=== PATIENT | female | born 1985 | race Caucasian/White ===

== ENCOUNTER 2019-06-08 17:21 | Inpatient (IN) | payer BC ==
[2019-06-08 17:41] LABS: ABS Basophils 0.1 10^3/ul (0-0.2); ABS Eosinophils 0.2 10^3/ul (0-0.6); ABS Lymphocytes 2.1 10^3/ul (1.0-4.8); ABS Monocytes 0.7 10^3/ul (0-0.8); ABS Neutrophils 8.4 10^3/ul (1.5-7.7); Eosinophil % 2.1 %; Hematocrit 36 % (35-47); Hemoglobin 12.2 g/dL (12.0-16.0); Lymphocyte % 18.3 %; Mean Corpuscular HGB Conc 34 g/dL (31-36); Mean Corpuscular Hemoglobin 27 pg (27-31); Mean Corpuscular Volume 81 fL (80-97); Mean Platelet Volume 8.7 fL (7.4-10.4); Platelet Count 276 10^3/uL (150-450); Red Blood Count 4.48 10^6 /uL (3.70-4.87); Red Cell Distribution Width 15 % (10-15); White Blood Count 11.5 10^3/uL (3.5-10.8)
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
[2019-06-08] MEDS ORDERED: hydrOXYzine HCL TAB* 25 MG PO ONE (17:50)
[2019-06-08 18:02] LABS: ALT 20 U/L (7-52); AST 22 U/L (13-39); Albumin 4.4 g/dL (3.2-5.2); Albumin/Globulin Ratio 1.8 (1-3); Alkaline Phosphatase 57 U/L (34-104); Anion Gap 8 mmol/L (2-11); Blood Urea Nitrogen 13 mg/dL (6-24); CO2 Carbon Dioxide 23 mmol/L (22-32); Calcium 8.8 mg/dL (8.6-10.3); Chloride 107 mmol/L (101-111); EGFR African American 133.3 (>60); EGFR Non-African American 110.2 (>60); Globulin 2.5 g/dL (2-4); Glucose 75 mg/dL (70-100); Sodium 138 mmol/L (135-145); Total Protein 6.9 g/dL (6.4-8.9)
[2019-06-08 18:06] LABS: HCG Pregnancy < 0.60 mIU/mL
[2019-06-08] MEDS ORDERED: LORazepam TAB(*) 1 MG PO ONE (18:28)
[2019-06-08 18:44] LABS: Acetaminophen < 15 mcg/mL; Alcohol 43 mg/dL (<10); Lithium < 0.10 mmol/L (0.6-1.2); Salicylate < 2.50 mg/dL (<30)
[2019-06-08 18:59] LABS: TSH (Thyroid Stimulating Horm) 1.47 mcIU/mL (0.34-5.60)
[2019-06-08 19:11] LABS: Urine Appearance Cloudy; Urine Bilirubin Negative (Negative); Urine Blood Negative (Negative); Urine Color Colorless; Urine Glucose Negative (Negative); Urine Ketones Negative (Negative); Urine Nitrite Negative (Negative); Urine Protein Negative (Negative); Urine Specific Gravity 1.003 (1.010-1.030); Urine Urobilinogen Negative (Negative)
[2019-06-08] MEDS ORDERED: Acetaminophen TAB* 325 MG PO ONE (19:17)
--- NOTE | 2019-06-08 19:27 | ED ---
Progress - Progress Note Progress Note: Patient signed out from Dr. Velez shift change 06/08/19 19:00. Awaiting psychiatric evaluation. Pending disposition. Re-Evaluation - Re-Evaluation First Eval Re-Evaluation Time: 23:10 Comment: psychiatric gas plant repairer reviewed case with Dr. Chua psychiatry. patient will be admitted Course/Dx - Diagnoses Provider Diagnoses: Bipolar disorder Discharge ED - Sign-Out/Discharge Documenting (check all that apply): Patient Departure, Receiving Sign-Out Receiving patient FROM: Bre Velez - Discharge Plan Condition: Stable Disposition: PSYCHIATRIC FACILITY-[facility] - Billing Disposition and Condition Condition: STABLE Disposition: Psychiatric Facility [facility] - Attestation Statements Document Initiated by Scribe: Yes Documenting Scribe: Kandy Farooq Provider For Whom Mashaibe is Documenting (Include Credential): Emily Lucio MD Scribe Attestation: Kandy Barry, scribed for Emily Lucio MD on 06/09/19 at 0104. Scribe Documentation Reviewed: Yes Provider Attestation: The documentation as recorded by the Kandy bardales accurately reflects the service I personally performed and the decisions made by , Emily Lucio MD Status of Scribe Document: Viewed
[2019-06-08 19:40] LABS: Urine Benzodiazepine Screen None Detected (None Detect); Urine Opiates Screen None Detected (None Detect)
[2019-06-09] MEDS ORDERED: diPHENhydraMINE PO* 25 MG ONE (00:57)
[2019-06-09] MEDS: diPHENhydraMINE PO* 25 MG PO PRN ×3 (01:00→18:44)
[2019-06-09] MEDS ORDERED: Al Hydrox/Mg Hydrox/Simet LIQ* 30 ML UDC PO PRN (01:05)
[2019-06-09] MEDS: Lithium Carbonate TAB* 300 MG PO SCH ×2 (05:45→21:39)
[2019-06-09] MEDS: Vitamin THERAPEUTIC TAB PO SCH (08:53)
[2019-06-09] MEDS: Nicotine PATCH 21 MG/24 HR* PATCH TRANSDERM SCH (08:54)
[2019-06-09] MEDS: Nicotine* 2MG (FRUIT FLAVOR) GUM PO PRN ×2 (15:39→18:44)
--- NOTE | 2019-06-09 20:40 | HP ---
HISTORY AND PHYSICAL: DATE OF ADMISSION: 06/09/19 IDENTIFYING DATA: Millie is a 34-year-old white female with a history of bipolar disorder and multiple prior psychiatric hospitalizations in different hospitals throughout the [place], was brought into the emergency room by police after being found wandering downtown from bar to bar and presenting to the police as disorganized and nonsensical. According to Millie, she was standing outside in front of a hotel smoking cigarette and wearing a small skirt only when police confronted her. Instead of taking her to the residential, they brought her to the emergency room where Millie presented irritable, uncooperative, and requiring support of the security officers because of inappropriate behaviors including removing clothes and standing in the doorway with her breasts exposed. However, she was later cooperative with the attorney recruiter and gave a very disjointed but extensive history of mental illness. She was at that time blunted, irritable, tangential, religiously preoccupied, and was focussed on wanting to leave the hospital. She was not willing to allow the attorney recruiter to obtain collateral from her relatives and friends as she was a poor historian, however, finally, our attorney recruiter was able to get in touch with her sister, who lives in [place]. Her sister gave an elaborate history of her mental illness and hospitalizations. Please review the documents provided by Millie's mother, who is a nurse, to know more about the chronology of her illness. On today's evaluation, Millie reports that she has been experiencing difficulty falling asleep for days at a time. During that time, her mind was raising mostly focussed on her art works and she could not form any coherent thoughts at that time, being up for nights in a row. She may have also experienced some visual hallucinations, which scared her at that time. However, finally she got to sleep for 4 hours 1 night and then 5 hours next night, which settled her down a little bit. However, she continues to be very disorganized in our thoughts jumping from topics to topic, and appearing restless. At this time, she denies any suicidal or homicidal ideation. Also, denies any psychotic symptoms. 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 Again, Millie's history is not reliable at this time. There is a collateral history from her sister that Millie has been involved in doing drugs, especially cocaine and drinking a lot, however, her urine drug screen and tox screen in the emergency department were unremarkable. PAST PSYCHIATRIC HISTORY: As mentioned in the HPI, Millie had multiple psychiatric hospitalizations since age 21 in different hospitals throughout the [facility]. She was diagnosed with bipolar disorder and was successfully treated with lithium. However, during her last hospitalization in [facility], she was given an injection of Invega Sustenna, which according to Millie made her feel very restless and she was thought her heart was bursting out of her chest. Her lithium level during the ED presentation was extremely low. PAST MEDICAL HISTORY: No reportable medical health issues and she is not in any physical distress at this time. ALLERGIES: No known drug allergies, however, there is a history of her experiencing a psychotic-induced acute dystonia in May of this year, when she received Invega Sustenna injection. SUBSTANCE ABUSE HISTORY: Not clear, however, according to Millie's sister, she may have used cocaine and have been drinking. Millie reported that last night, prior to her coming to the hospital, she was going in and out of the bars drinking. FAMILY PSYCHIATRIC HISTORY: Unknown at this time because Millie cannot provide any history. 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 She was not involved in any significant relationship at this time. Her living situation is unstable at best. Prior to coming to the hospital, she was staying in a hotel. Again, more history needs to be obtained from Millie when she is more coherent and capable of providing meaningful information. PHYSICAL EXAMINATION GENERAL: Millie is a tall, healthy-appearing female, who is not in any physical distress at the time of evaluation. VITAL SIGNS: Her vitals show a blood pressure of 158/95, pulse 118, respirations 20, temperature 98.4, pulse oxygen 98 on room air. HEENT: PERRLA. EOMI x2. Head: Atraumatic, normocephalic. Ear canals clean with intact eardrums bilaterally. NECK: Supple with midline trachea. No lymphadenopathy or thyromegaly. CHEST: Equal air entry bilaterally. No wheezing or crepitations. CARDIOVASCULAR: S1 and S2 only. No murmurs or gallops. ABDOMEN: Flat, soft, nontender. No organomegaly. Bowel sounds positive in all quadrants. EXTREMITIES: Full range of movements of joints. Pulse positive in all 4 quadrants. NEUROLOGIC: No sensory deficits. Cranial nerves II through XII are grossly intact. She is alert and oriented to time, place, and person. MENTAL STATUS EXAMINATION: This is a well-dressed, neatly groomed, female, who is alert and oriented to time, place, and person. She is somewhat restless, but makes good eye contact. Her speech is moderately pressured, but overall goal directed. Describes her mood as "fine," observed affect, appears to be bright. Thought processes at this appears to be logical and goal directed. Thought content is devoid of any kind of delusions or obsessions. Intelligence appears to be average as evidenced by vocabulary and fund of knowledge and educational background. Memory functions are intact in all spheres. Insight and judgment appears to be poor. DIAGNOSTIC STUDIES/LAB DATA: Lab result shows a WBC count of 11.5, hemoglobin 12.2, hematocrit 36, platelet count 276. Comprehensive metabolic profile shows a sodium level of 138, potassium 4.0, chloride 107, carbon dioxide 23, BUN 13, creatinine 0.62, rest of the lab reports are unremarkable. SUMMARY: This 34-year-old female unknown to this facility, but with known history of mental illness since age 21, who had multiple prior psychiatric hospitalizations and was brought to the emergency department by police after they found her in a disorganized possibly intoxicated state on the streets of [place]. DIAGNOSTIC IMPRESSION: MENTAL HEALTH DIAGNOSES: Bipolar I disorder. Most recent episode hypomanic without psychotic features. Rule out substance-induced mood disorder. PHYSICAL HEALTH DIAGNOSIS: None. TREATMENT RECOMMENDATIONS: Millie will remain hospitalized on the behavioral science unit for her safety and rapid stabilization of acute hypomanic symptoms. Her code status will remain full. Supportive milieu, individual, and group therapy will be initiated. Millie was started back on her lithium, which she has been taking since last night. She already received Invega Sustenna a couple of weeks ago. Hence, at this time, I do not see any reasons to make any adjustment to or change of medications. However, she might need some assistance with sleep and I have discussed to prescribe Klonopin one time at night and she agreed hence I am going to start her on Klonopin 1 mg at bedtime to see if that helps. We may have to use lorazepam intermittently to help her sleep. Rest of the psychopharmacological management will be deferred to her assigned psychiatrist on the unit. [id number]/[facility] #: [id number] JOHAN
[2019-06-09] MEDS: clonazePAM TAB(*) 1 MG PO SCH (20:42)
[2019-06-09] MEDS: Nicotine Patch Removal NOTE PATCH OFF SCH (21:29)
[2019-06-10] MEDS: Vitamin THERAPEUTIC TAB PO SCH (08:24)
[2019-06-10] MEDS: Nicotine* 2MG (FRUIT FLAVOR) GUM PO PRN ×4 (08:24→21:43)
[2019-06-10] MEDS: Lithium Carbonate TAB* 300 MG PO SCH ×2 (08:24→20:34)
[2019-06-10] MEDS: Nicotine PATCH 21 MG/24 HR* PATCH TRANSDERM SCH (09:47)
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
[2019-06-10] MEDS: Nicotine Patch Removal NOTE PATCH OFF SCH (19:33)
[2019-06-10] MEDS: clonazePAM TAB(*) 1 MG PO SCH (21:12)
[2019-06-11] MEDS: Nicotine* 2MG (FRUIT FLAVOR) GUM PO PRN ×5 (05:39→20:56)
[2019-06-11 07:38] LABS: HDL Cholesterol 67.4 mg/dL
[2019-06-11] MEDS: Lithium Carbonate TAB* 300 MG PO SCH ×2 (08:38→20:55)
[2019-06-11] MEDS: Vitamin THERAPEUTIC TAB PO SCH (08:38)
[2019-06-11] MEDS: Nicotine PATCH 21 MG/24 HR* PATCH TRANSDERM SCH (08:39)
[2019-06-11 08:43] LABS: Lithium 0.23 mmol/L (0.6-1.2)
--- NOTE | 2019-06-11 16:52 | PN ---
Subjective - Subjective Date of Service: 06/11/19 Service Type: 26169 Hosp care 25 min moderate complexity Subjective: Scott is talkative while she draws on the white board in the multipurpose room. She acknowledges that she is spending a lot of time with a male peer and is amused by the intensity of their interactions. She remains manic, quoting writers and making hr own quotes and asserting that when she takes Klonopin before she's ready to sleep, she sees jellyfish, which have something to do with protective protein synthesis. 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 In general she is dismissive of staff and impressed by her own abilities. She talks about Wesley Mejia in a familiar fashion apparently knowing his son. She explains that he because he had Parkinson's disease and could not tolerate it and then contradicts herself and sighs, "Poor Wesley." She is grandiose in sucha a fashion several times. Objective - General Observations Appearance: Neat Appears Stated Age: Yes Stature: WNL Posture: WNL Eye Contact: Intermittent Behavior/Activity: Accelerated, Impulsive - Interaction Observations Attitude Towards Examiner: Cooperative, Dismissive Stated Mood: Elevated, Euphoric Affect: Bright Speech Pattern/Tone: Clear, Normal Volume Thought Process: Coherent, Flight of Ideas Perception: WNL Thought Content: Preoccupation/Ruminations, Grandiose Hallucination Type: None Delusion Type: Denies - Cognitive Function Orientation: A&O x 4 Level of Consciousness: Awake, Alert, Appropriate Cognition: Impaired Cognition, Impaired Attention/Concentration Estimated Intelligence: Normal Insight: Mostly Blames Others for Problems, Difficulty Acknowledging Presence of Psyciatric Problems Judgment Within Normal Limits: No Ability to Make Reasonable Decisions: Serverely Impaired - Medication Compliance Cooperative with Inpatient Medication Regimen: Yes - Group Participation Participates in Group Activities: Partial Assessment - Assessment Merits Inpatient Hospitalization: For Immediate Safety Inpatient DSM-V Dx: F31.10 Clinical Impression: 34yo wf, domiciled, employed, unknown to [facility] but has been hospitalized in multiple facilities in [facility] due to bipolar disorder. She was brought to the ED by police when they found her in [place] barely clothed and disorganized. She presents with yessenia and is unable to care for herself. She merits hospitalization for immediate safety and stabilization. Plan - Plan Treatment Plan: Name: SCOTT SENIOR Birthdate: 1985 [id number] continue acute intensive psychiatric treatment. continue lithium 300mg BID. obtain lithium trough in am, along with hgba1c and fasting lipid panel. discharge to include family and referrals to outpatient providers. 06/11/19 Increase lithium to 300 QAM and 600 QHS as her [place] level was only 0.23 at the old dose of 300 mg BID. Medications: Current Medications Acetaminophen (Tylenol Tab*) 650 mg PO Q4H PRN PRN Reason: PAIN or TEMP > 101 F Al Hydrox/Mg Hydrox/Simethicone (Maalox Plus*) 30 ml PO Q4H PRN PRN Reason: INDIGESTION Clonazepam (Klonopin Tab(*)) 1 mg PO BEDTIME [facility] Last Admin: 06/10/19 21:12 Dose: 1 mg Diphenhydramine HCl (Benadryl Po*) 25 mg PO Q4H PRN PRN Reason: INSOMNIA/ITCHING Last Admin: 06/09/19 18:44 Dose: 25 mg [place] Carbonate ([place] Carbonate Tab*) 300 mg PO BID [facility] Last Admin: 06/11/19 08:38 Dose: 300 mg Multivitamins (Theragran Tab*) 1 tab PO DAILY [facility] Last Admin: 06/11/19 08:38 Dose: 1 tab Nicotine (Nicotine Patch 21 Mg/24 Hr*) 1 patch TRANSDERM DAILY [facility] Last Admin: 06/11/19 08:39 Dose: 1 patch Nicotine Polacrilex (Nicotine Gum*) 2 mg PO Q2H PRN PRN Reason: CRAVINGS Last Admin: 06/11/19 16:40 Dose: 2 mg Pharmacy Profile Note (Nicotine Patch Removal Note*) 1 note PATCH OFF 2100 [facility] Last Admin: 06/10/19 19:33 Dose: Not Given - Discharge Plan Discharge Plan: Outpatient Follow Up
[2019-06-11] MEDS: Nicotine Patch Removal NOTE PATCH OFF SCH (21:02)
[2019-06-11] MEDS: clonazePAM TAB(*) 1 MG PO SCH (21:21)
[2019-06-12] MEDS: Vitamin THERAPEUTIC TAB PO SCH (08:32)
[2019-06-12] MEDS: Nicotine* 2MG (FRUIT FLAVOR) GUM PO PRN ×5 (08:33→18:54)
[2019-06-12] MEDS: Lithium Carbonate TAB* 300 MG PO SCH ×2 (08:33→20:23)
[2019-06-12] MEDS: Nicotine PATCH 21 MG/24 HR* PATCH TRANSDERM SCH (09:42)
--- NOTE | 2019-06-12 16:40 | PN ---
Subjective - Subjective Date of Service: 06/12/19 Service Type: [id number] Hosp care 15 min low complexity Subjective: Reports doing well overall with no specific complaint. Reports seeing self as manic and benefiting from lithium. Reports feeling like hallucinating with Klonopin. Reports Xanax and Ativan make her "ineffective." Sleeping "like i'm ." Denies any SI. Objective - General Observations Appearance: Neat, Well Groomed Appears Stated Age: Yes Stature: WNL Posture: WNL Eye Contact: Average Behavior/Activity: WNL - Interaction Observations Attitude Towards Examiner: Cooperative Stated Mood: Euthymic Speech Pattern/Tone: Clear, Appropriate, Normal Volume Thought Process: Coherent Perception: WNL Thought Content: WNL Hallucination Type: None - at first on unit saw jelly fish, because they are good for the brain Delusion Type: None - but reports she thought jellyfish were going to find her, Denies - Cognitive Function Orientation: A&O x 4 Level of Consciousness: Awake, Alert, Appropriate Cognition: WNL Estimated Intelligence: Above Normal Insight: WNL Judgment Within Normal Limits: Yes - Medication Compliance Cooperative with Inpatient Medication Regimen: Yes - Group Participation Participates in Group Activities: Yes Assessment - Assessment Merits Inpatient Hospitalization: For Stabilization, Consolidate Improvements, For Discharge Planning, Pending Safe DC Plan Inpatient DSM-V Dx: F31.10 Clinical Impression: 34yo wf, domiciled, employed, [place] [facility] [place] has been hospitalized in multiple facilities in [facility] due to bipolar disorder. She was brought to the ED by police when they found her in [place] barely clothed and disorganized. She presents with yessenia and is unable to care for herself. She merits hospitalization for immediate safety and stabilization. As of 06.12.19, has been compliant with lithium the whole time here. REporting clear insight, with appropriate affect and no grandiosity nor pressured speech nor other signs of continued yessenia. Plan - Plan Treatment Plan: Name: SCOTT SENIOR Birthdate: 1985 [id number] continue acute intensive psychiatric treatment. continue lithium 300mg AM and 600 mg HS. discharge to include family and referrals to outpatient providers. Continued Medication Management: Continue Outpt Medication - with some meds discontinued from outpatient regimen Medications: Current Medications Acetaminophen (Tylenol Tab*) 650 mg PO Q4H PRN PRN Reason: PAIN or TEMP > 101 F Al Hydrox/Mg Hydrox/Simethicone (Maalox Plus*) 30 ml PO Q4H PRN PRN Reason: INDIGESTION Clonazepam (Klonopin Tab(*)) 1 mg PO BEDTIME [facility]UREN Last Admin: 06/11/19 21:21 Dose: 1 mg Diphenhydramine HCl (Benadryl Po*) 25 mg PO Q4H PRN PRN Reason: INSOMNIA/ITCHING Last Admin: 06/09/19 18:44 Dose: 25 mg [place] Carbonate (Steinauer Carbonate Tab*) 600 mg PO BEDTIME LAUREN Steinauer Carbonate (Steinauer Carbonate Tab*) 300 mg PO DAILY [facility] Last Admin: 06/12/19 08:33 Dose: 300 mg Multivitamins (Theragran Tab*) 1 tab PO DAILY [facility] Last Admin: 06/12/19 08:32 Dose: 1 tab Nicotine (Nicotine Patch 21 Mg/24 Hr*) 1 patch TRANSDERM DAILY [facility] Last Admin: 06/12/19 09:42 Dose: Not Given Nicotine Polacrilex (Nicotine Gum*) 2 mg PO Q2H PRN PRN Reason: CRAVINGS Last Admin: 06/12/19 14:51 Dose: 2 mg Pharmacy Profile Note (Nicotine Patch Removal Note*) 1 note PATCH OFF 2099 [facility] Last Admin: 06/11/19 21:02 Dose: 1 note - Discharge Plan Discharge Plan: Outpatient Follow Up Outpatient Program: [facility]
[2019-06-12] MEDS: clonazePAM TAB(*) 1 MG PO SCH (20:23)
[2019-06-12] MEDS: Nicotine Patch Removal NOTE PATCH OFF SCH (20:26)
[2019-06-12] MEDS: diPHENhydraMINE PO* 25 MG PO PRN (23:59)
[2019-06-13] MEDS: Nicotine* 2MG (FRUIT FLAVOR) GUM PO PRN ×4 (06:11→20:51)
[2019-06-13] MEDS: Lithium Carbonate TAB* 300 MG PO SCH ×2 (08:58→20:49)
[2019-06-13] MEDS: Vitamin THERAPEUTIC TAB PO SCH (08:59)
[2019-06-13] MEDS: Nicotine PATCH 21 MG/24 HR* PATCH TRANSDERM SCH (08:59)
[2019-06-13] MEDS: clonazePAM TAB(*) 1 MG PO SCH (20:48)
[2019-06-13] MEDS: Nicotine Patch Removal NOTE PATCH OFF SCH (21:03)
[2019-06-14] MEDS: Vitamin THERAPEUTIC TAB PO SCH (09:25)
[2019-06-14] MEDS: Nicotine PATCH 21 MG/24 HR* PATCH TRANSDERM SCH (09:25)
[2019-06-14] MEDS: Lithium Carbonate TAB* 300 MG PO SCH ×2 (09:25→20:42)
[2019-06-14] MEDS: Nicotine* 2MG (FRUIT FLAVOR) GUM PO PRN ×3 (13:45→20:44)
--- NOTE | 2019-06-14 13:54 | PN ---
BSU: Group Therapy Note - Service Type Service Type: [id number] Psychotherapy - Cognitive Behavioral Group Note: Millie was an enthusiastic group participant, but needed redirection at serveral points to engage in appropriate clinical discussion. 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 Millie impresses as having good insight regarding symptoms and behaviors, but concerns remain regarding judgement in terms of conduct.
--- NOTE | 2019-06-14 14:00 | PN ---
BSU: Group Therapy Note - Service Type Service Type: [id number] Psychotherapy - Individual and family psychotherapy note: This scientific writer met initially with Millie and her mother, and then individually with her mother. Millie's mother described nine years of stability after initial efforts to treat her manic symptoms. She identified recent stressors as being the apparent etiology to current yessenia, including cocaine use while with friends in [facility]. Other efforts at [facility] involve negative reaction to Invega. She has had inpatient treatment in [facility], as well as [facility]. Her mother describes unsuccessful attempts to establish outpatient services in the recent past. They remain hopeful of Millie being able to maintain current employment, describing supervisory staff as being very concerned an senstive to her difficulites. Millie's mother further described some historical problems with delusional thoughts, and expressed relief regarding her improvement to date.
--- NOTE | 2019-06-14 15:49 | PN ---
Subjective - Subjective Date of Service: 06/14/19 Service Type: [id number] Hosp care 15 min low complexity Subjective: Millie is found talking on the phone with a piece of art featuring koryllyfish in her hand. She has been writing on the back of it a letter to her former fiance who she says has lots of money, "but I have a master's degree!" In the letter she describes loving him, but being "weak". She stated, "Your arms feel like forever, but your kisses feel like never." She has been instructed to give it to her brother in law Tanner, whose relationship with her is "platonic." She was proposed to twice this weekend, once by her best friend and once by her boyfriend. She states she was in tears after that and another patient comforted her and she kissed him. She acknowledges that it was the wrong decision to make. Objective - General Observations Appearance: Neat Appears Stated Age: Yes Stature: WNL Posture: WNL Eye Contact: Intermittent Behavior/Activity: Accelerated - Interaction Observations Attitude Towards Examiner: Cooperative Stated Mood: Elevated Affect: Bright Speech Pattern/Tone: Clear, Normal Volume Thought Process: Coherent, Tangential Perception: WNL Thought Content: Preoccupation/Ruminations, Grandiose Hallucination Type: None Delusion Type: None - Cognitive Function Orientation: A&O x 4 Level of Consciousness: Awake, Alert, Appropriate Cognition: Impaired Cognition Estimated Intelligence: Normal Insight: Difficulty Acknowledging Presence of Psyciatric Problems Judgment Within Normal Limits: No Ability to Make Reasonable Decisions: Moderately Impaired - Medication Compliance Cooperative with Inpatient Medication Regimen: Yes - Group Participation Participates in Group Activities: Yes Assessment - Assessment Merits Inpatient Hospitalization: For Immediate Safety Inpatient DSM-V Dx: F31.10 Clinical Impression: 34yo wf, domiciled, employed, unknown to [facility] but has been hospitalized in multiple facilities in [facility] due to bipolar disorder. She was brought to the ED by police when they found her in [place] barely clothed and disorganized. She presents with yessenia and is unable to care for herself. She merits hospitalization for immediate safety and stabilization. As of 06.12.19, has been compliant with lithium the whole time here. REporting clear insight, with appropriate affect and no grandiosity nor pressured speech nor other signs of continued yessenia. Plan - Plan Treatment Plan: Name: MILLIE SENIOR Birthdate: 1985 [id number] continue acute intensive psychiatric treatment. continue lithium 300mg AM and 600 mg HS. discharge to include family and referrals to outpatient providers. Medications: Current Medications Acetaminophen (Tylenol Tab*) 650 mg PO Q4H PRN PRN Reason: PAIN or TEMP > 101 F Al Hydrox/Mg Hydrox/Simethicone (Maalox Plus*) 30 ml PO Q4H PRN PRN Reason: INDIGESTION Clonazepam (Klonopin Tab(*)) 1 mg PO BEDTIME [facility] Last Admin: 06/13/19 20:48 Dose: 1 mg Diphenhydramine HCl (Benadryl Po*) 25 mg PO Q4H PRN PRN Reason: INSOMNIA/ITCHING Last Admin: 06/12/19 23:59 Dose: 25 mg [place] Carbonate ([place] Carbonate Tab*) 600 mg PO BEDTIME LAUREN Last Admin: 06/13/19 20:49 Dose: 600 mg [place] Carbonate ([place] Carbonate Tab*) 300 mg PO DAILY [facility] Last Admin: 06/14/19 09:25 Dose: 300 mg Multivitamins (Theragran Tab*) 1 tab PO DAILY [facility] Last Admin: 06/14/19 09:25 Dose: 1 tab Nicotine (Nicotine Patch 21 Mg/24 Hr*) 1 patch TRANSDERM DAILY [facility] Last Admin: 06/14/19 09:25 Dose: 1 patch Nicotine Polacrilex (Nicotine Gum*) 2 mg PO Q2H PRN PRN Reason: CRAVINGS Last Admin: 06/14/19 13:45 Dose: 2 mg Pharmacy Profile Note (Nicotine Patch Removal Note*) 1 note PATCH OFF 2099 [facility] Last Admin: 06/13/19 21:03 Dose: 1 note
[2019-06-14] MEDS: clonazePAM TAB(*) 1 MG PO SCH (20:42)
[2019-06-14] MEDS: Nicotine Patch Removal NOTE PATCH OFF SCH (20:44)
[2019-06-15] MEDS: Acetaminophen TAB* 325 MG PO PRN ×2 (00:29→06:38)
[2019-06-15] MEDS: Nicotine* 2MG (FRUIT FLAVOR) GUM PO PRN ×3 (05:13→19:55)
[2019-06-15] MEDS: Vitamin THERAPEUTIC TAB PO SCH (10:10)
[2019-06-15] MEDS: Nicotine PATCH 21 MG/24 HR* PATCH TRANSDERM SCH (10:10)
[2019-06-15] MEDS: Lithium Carbonate TAB* 300 MG PO SCH ×2 (10:10→21:33)
[2019-06-15] MEDS: clonazePAM TAB(*) 1 MG PO SCH (21:32)
[2019-06-15] MEDS: Nicotine Patch Removal NOTE PATCH OFF SCH (21:34)
[2019-06-16] MEDS: Acetaminophen TAB* 325 MG PO PRN ×2 (00:36→22:52)
[2019-06-16] MEDS: Nicotine* 2MG (FRUIT FLAVOR) GUM PO PRN ×3 (00:37→21:19)
[2019-06-16] MEDS: Vitamin THERAPEUTIC TAB PO SCH (09:12)
[2019-06-16] MEDS: Lithium Carbonate TAB* 300 MG PO SCH ×2 (09:12→21:17)
[2019-06-16] MEDS: Nicotine PATCH 21 MG/24 HR* PATCH TRANSDERM SCH (09:12)
--- NOTE | 2019-06-16 18:34 | PN ---
Subjective - Subjective Date of Service: 06/16/19 Service Type: [id number] Hosp care 25 min moderate complexity Subjective: Millie appears to be all over the place including standing by the nurses station writing poems to her lover and others as well. Very hyper and energetic but polite when approached. Taking [place] without any objections or stated problems. Probably needs serum level and adjustment to the dose. Denies SI, HI or psychosis. Objective - General Observations Appearance: Neat, Well Groomed Appears Stated Age: Yes Stature: WNL Posture: WNL Eye Contact: Average Behavior/Activity: Accelerated - Interaction Observations Attitude Towards Examiner: Cooperative Stated Mood: Elevated Affect: Bright Speech Pattern/Tone: Excessive, Pressured Thought Process: Coherent, Flight of Ideas, Racing Perception: WNL Thought Content: Grandiose Hallucination Type: Denies Delusion Type: Denies - Cognitive Function Orientation: A&O x 4 Level of Consciousness: Awake, Alert, Appropriate Cognition: WNL Estimated Intelligence: Normal Insight: WNL Judgment Within Normal Limits: Yes Ability to Make Reasonable Decisions: Moderately Impaired - Medication Compliance Cooperative with Inpatient Medication Regimen: Yes - Group Participation Participates in Group Activities: Yes Assessment - Assessment Merits Inpatient Hospitalization: For Immediate Safety, For Stabilization, Pending Safe DC Plan Inpatient DSM-V Dx: F31.10 Clinical Impression: 34yo wf, domiciled, employed, unknown to [facility] but has been hospitalized in multiple facilities in [facility] due to bipolar disorder. She was brought to the ED by police when they found her in [place] barely clothed and disorganized. She presents with yessenia and is unable to care for herself. She merits hospitalization for immediate safety and stabilization. As of 06.12.19, has been compliant with lithium the whole time here. REporting clear insight, with appropriate affect and no grandiosity nor pressured speech nor other signs of continued yessenia. Plan - Plan Treatment Plan: Name: MILLIE SENIOR Birthdate: 1985 [id number] continue acute intensive psychiatric treatment. continue lithium 300mg AM and 600 mg HS. discharge to include family and referrals to outpatient providers. Continued Medication Management: Continue Outpt Medication Medications: Current Medications Acetaminophen (Tylenol Tab*) 650 mg PO Q4H PRN PRN Reason: PAIN or TEMP > 101 F Last Admin: 06/16/19 00:36 Dose: 650 mg Al Hydrox/Mg Hydrox/Simethicone (Maalox Plus*) 30 ml PO Q4H PRN PRN Reason: INDIGESTION Clonazepam (Klonopin Tab(*)) 1 mg PO BEDTIME LAUREN Last Admin: 06/15/19 21:32 Dose: 1 mg Diphenhydramine HCl (Benadryl Po*) 25 mg PO Q4H PRN PRN Reason: INSOMNIA/ITCHING Last Admin: 06/12/19 23:59 Dose: 25 mg [place] Carbonate (Bertsch-[place] Carbonate Tab*) 600 mg PO BEDTIME LAUREN Last Admin: 06/15/19 21:33 Dose: 600 mg Bertsch-[place] Carbonate (Bertsch-[place] Carbonate Tab*) 300 mg PO DAILY [facility] Last Admin: 06/16/19 09:12 Dose: 300 mg Multivitamins (Theragran Tab*) 1 tab PO DAILY [facility] Last Admin: 06/16/19 09:12 Dose: 1 tab Nicotine (Nicotine Patch 21 Mg/24 Hr*) 1 patch TRANSDERM DAILY [facility] Last Admin: 06/16/19 09:12 Dose: 1 patch Nicotine Polacrilex (Nicotine Gum*) 2 mg PO Q2H PRN PRN Reason: CRAVINGS Last Admin: 06/16/19 12:56 Dose: 2 mg Pharmacy Profile Note (Nicotine Patch Removal Note*) 1 note PATCH OFF 2100 [facility] Last Admin: 06/15/19 21:34 Dose: 1 note - Discharge Plan Discharge Plan: Outpatient Follow Up Outpatient Program: [facility]
[2019-06-16] MEDS: clonazePAM TAB(*) 1 MG PO SCH (21:17)
[2019-06-16] MEDS: Nicotine Patch Removal NOTE PATCH OFF SCH (21:19)
[2019-06-17] MEDS: Vitamin THERAPEUTIC TAB PO SCH (09:01)
[2019-06-17] MEDS: Lithium Carbonate TAB* 300 MG PO SCH (09:01)
[2019-06-17] MEDS: Nicotine PATCH 21 MG/24 HR* PATCH TRANSDERM SCH (09:01)
[2019-06-17 12:40] VITALS: BP 115/59
[2019-06-17] MEDS: Nicotine* 2MG (FRUIT FLAVOR) GUM PO PRN ×2 (14:02→17:16)
[2019-06-17] MEDS ORDERED: Lithium Carbonate ER* 450 MG TAB.ER PO SCH (21:00)
== END 2019-06-17 17:33 | disposition home or self-care (01) | DRG 753 ==
LOC: ED 17:21 → BSU 06-09 00:28
PROVIDERS: ADMIT Psychiatry & Neurology Psychiatry; ATTEND Psychiatry & Neurology Psychiatry
PROC: GZHZZZZ Group Psychotherapy (ICD-10-PCS; principal; 2019-06-14)
DX: F31.10 Bipolar disorder, current episode manic without psychotic features, unspecified (principal); Z88.8 Allergy status to other drugs, medicaments and biological substances; Z28.21 Immunization not carried out because of patient refusal
CPT/HCPCS: 36415; 80053; 80061; 80178; 80307; 80320; 80329; 81003; 83036; 84443; 84702; 85025; 90832; 99222; 99231; 99232; 99233; 99238; 99283; A9270-GY; G0480

== ENCOUNTER 2019-06-22 10:44 | Inpatient (IN) | payer BC ==
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
[2019-06-22 12:56] LABS: Urine Appearance Cloudy; Urine Bacteria Absent (Absent); Urine Bilirubin Negative (Negative); Urine Blood 3+ (Negative); Urine Glucose Negative (Negative); Urine Ketones Trace (Negative); Urine Nitrite Negative (Negative); Urine Protein 1+(30 mg/dL) (Negative); Urine Red Blood Cell 3+(>10/hpf) (Absent); Urine Squamous Epithelial Cell Present (Absent); Urine Urobilinogen Negative (Negative); Urine White Blood Cell 1+(6-10/hpf) (Absent)
[2019-06-22 12:58] LABS: Urine Color Amber
[2019-06-22 13:04] LABS: Urine Benzodiazepine Screen None Detected (None Detect); Urine Opiates Screen None Detected (None Detect)
[2019-06-22] MEDS ORDERED: Acetaminophen TAB* 325 MG PO PRN (19:33)
[2019-06-22] MEDS ORDERED: Al Hydrox/Mg Hydrox/Simet LIQ* 30 ML UDC PO PRN (19:33)
[2019-06-22] MEDS ORDERED: Lithium Carbonate ER* 450 MG TAB.ER PO SCH (21:00)
[2019-06-22] MEDS: Nicotine* 2MG (FRUIT FLAVOR) GUM PO PRN (22:33)
[2019-06-22] MEDS: clonazePAM TAB(*) 1 MG PO PRN (22:33)
[2019-06-23] MEDS: Vitamin THERAPEUTIC TAB PO SCH (09:25)
[2019-06-23] MEDS: Nicotine PATCH 21 MG/24 HR* PATCH TRANSDERM SCH (09:26)
[2019-06-23] MEDS ORDERED: clonazePAM TAB(*) 1 MG PO PRN (11:42)
--- NOTE | 2019-06-23 11:59 | PN ---
BSU: Group Therapy Note - Service Type Service Type: [id number] Group Psychotherapy - Cognitive Behavioral Group Note: Millie was attentive and participatory in programming this morning, engaging in a pleasant fashion, but exhibited manic symptoms once engaged in conversation. She was difficult to redirect, and was mildly inappropriate in conversation with a peer.
[2019-06-23] MEDS: Nicotine* 2MG (FRUIT FLAVOR) GUM PO PRN ×4 (12:28→21:01)
--- NOTE | 2019-06-23 16:07 | PN ---
BSU: Group Therapy Note - Service Type Service Type: [id number] Group Psychotherapy - Medication Education Group: Patient was irritable and did not engage in conversation. Noted to enter and exit group multiple times.
--- NOTE | 2019-06-23 20:29 | HP ---
HISTORY AND PHYSICAL: DATE OF ADMISSION: 06/22/19 PROVIDER: Izabella Swartz NP, in Psychiatry. SUPERVISING PHYSICIAN: Bruno Lau MD * (DICTATED BY IZABELLA SWARTZ NP) JUSTIFICATION FOR ADMISSION: The patient is in need of 24-hour supervision and care secondary to gross disorganization and manic symptoms. CHIEF COMPLAINT: "I am here because of my mother." HISTORY OF PRESENT ILLNESS: The patient is a 34-year-old, single white female with a history of bipolar I disorder, who arrives brought in by her mother and is here on on a 9.39 status after behaving erratically following a recent discharge from this hospital unit. Millie was discharged from this unit on 06/17/19. She had displayed manic symptoms, but took lithium, we got to a total of 900 mg of extended-release lithium and she was discharged on that medication in addition to 1 mg of Klonopin as needed. Millie has returned to the hospital. Her lithium level is less than 0.1 indicating that she did not take her lithium when she was at home. At home, she connected with a former patient named Brant who was intimidating to her mother and also was behaving somewhat erratically and inappropriately. Apparently, Brant took a taxi cab to Gregs apartment, but did not have the money to pay. Millie tried to write a check to the taxi and the taxi would not accept a check, Millie insisted that her mother pay and her mother would not pay it. The petroleum transport driver called the police. The police came and there was some discussion of whether or not Brant should be arrested. Brant was not arrested and did come into Gregs apartment along with her mother. Millie behaved in a provocative, at times, a sexual way and Millie's mother, Deisy, indicated to Millie that this was inappropriate and that both Millie and Brant were behaving inappropriately. This was an unpopular announcement from Deisy to Millie. Millie, on 06/22/19, returned to the behavioral services unit with her mother. They came in between the doors. Millie's mother was in tears that Millie was nearly silent, but looked defiant and angry. She agreed to walk with me to the emergency department where she was placed in a room and evaluated and admitted on 9.39 status. Millie blames her situation in the hospital on her mother being unreasonable. During a meeting today with Millie and her mother, Millie in the blink of an eye shifted from being quite pleasant to being rude, aggressive, dismissive, and a bit nasty to her mother. Her mother indicates that this is only 10% of how unpleasant Millie can be when she is manic and not getting what she wants. At this time, she is distractible. She is indiscreet in her home around her house guest and her mother. She is grandiose believing that she will go to [place] to live with her sister, although this has not been discussed. Flight of ideas is present. Her activity has increased. She is hypergraphic. There is a sleep deficit. She had not slept for a few days, but did sleep last night , and she is very talkative, not entertaining conversation as much as she is explaining her thought process. At this point, her behavior could be considered high risk. The former patient she is choosing to associate with is noted to be a person who behaves erratically. PAST PSYCHIATRIC HISTORY: Millie recently was discharged from this unit. She has also had many hospitalizations since age 21, approximately at 5-year intervals. She was diagnosed with bipolar disorder and was successfully treated with lithium. During the last hospitalization that occurred in [facility], she was given an injection of Invega Sustenna, which according to Millie made her feel restless and gave her a heart rate of 165 beats per minute, making her feel as though her heart were bursting out of her chest. It should be noted that although Millie was adherent to medication scheduled in the hospital, she was not when she left. She stated she did not ever like lithium and that it made her feel like her brain and her feet were inflamed. PAST MEDICAL HISTORY: She reports that she had breast cancer at one point in her youth. ALLERGIES: There are drug allergies noted. These are CEFACLOR and PALIPERIDONE. SUBSTANCE ABUSE HISTORY: Not clear, however, according to Millie's sister, she may have used cocaine recently and have been drinking. Millie reported that before coming to the hospital the last time, she was going in and out of the bars drinking. FAMILY PSYCHIATRIC HISTORY: Unknown at this time. 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 She is not involved in any significant relationship at this time. She broke up with her boyfriend in March. Her living situation is that she has a studio apartment. She does, however, occasionally stay in hotels. She has never been in the . There are no legal charges pending against her. She has a sister named Aliza. She has a brother named Ashutosh. Ashutosh does not talk to his father, he does talk to Aliza. REVIEW OF SYSTEMS: The patient reports feeling alert. She denies shortness of breath, heat or cold intolerance, chest pain, or abdominal pain. She denies neurological symptoms other than the "inflammatory" feeling she has in her feet and her head. She denies fevers or changes in weight. PHYSICAL EXAMINATION CONSTITUTIONAL: Well-developed, well-nourished, alert. VITAL SIGNS: On 06/22/19, temperature was 98.1, pulse 94, respirations 16, O2 sat on room air 100%, blood pressure 107/78. HEENT: Normocephalic, atraumatic. Eyes: Conjunctivae normal. NECK: Musculoskeletal range of motion, normal neck. No JVD. No stridor. No tracheal deviation. PULMONARY: Chest wall: Effort normal. No respiratory distress. No wheezes, no rales. CARDIO: Regular rhythm. Rate normal. Heart sounds normal. Intact distal pulses. Radial pulses are 2+ and symmetric. No murmur. ABDOMEN: Soft, nontender. No distention, no guarding, no rebound. MUSCULOSKELETAL: No edema. LYMPH: No cervical adenopathy. NEURO: Alert and oriented x4. SKIN: Warm and dry. MENTAL STATUS EXAM: Millie is a white woman, appearing her stated age of 34 with dark brown hair that is currently in a ponytail. She is 5 feet 10 inches, 159 pounds, and walks on the balls of her feet due to the foot pain. Her grooming is adequate. She is slightly hyperkinetic. Her posture is good. Her eye contact is intermittent. She is writing almost constantly or drawing. She is calm and cooperative with me, but with her mother, she is irritable and becomes hostile at times. Her speech is slightly rapid. Tone and volume are normal. She states she is euthymic. She may be somewhat euphoric. She has a full range of affect. It appears that she has been crying, but she does not reference having been crying. Her thought process appears to be racing and goal directed. She is very interested in meeting with Brant, this former patient. She is free from delusion. She is not homicidal or suicidal. She is not hallucinating. Her insight is good, her judgment is poor. She is alert and oriented x4. LABORATORY DATA: Most data are within normal limits. These data come from with the exception of urine, which on 06/22/19 at 11:15, urine protein is present at 1+, trace ketones, blood 3+, leukocyte esterase 2+, urine white blood cells 1+, urine rbc's 3+, urine squamous epithelial cells are present, urine ascorbic acid is present. It should be noted that she does have her period at this time. Her lithium level is less than 0.1. Her toxicology screen is free from drugs of abuse. DIAGNOSIS: Bipolar disorder type I, current episode manic. IMPRESSION: Millie is a 34-year-old, single white woman, who comes to the hospital with bipolar I disorder symptoms related to yessenia, who has the support of her mother, who is acknowledging that she also has been behaving erratically. PLAN: The patient is admitted to the adult behavioral unit and placed on 15- minute checks for her own safety. She is encouraged to participate in supportive milieu, individual, and group therapies. Estimated length of stay is 5 to 7 days. We will titrate medications including Klonopin, Depakote, and possibly Abilify. We will monitor for mood and thought content. Discharge planning will include family involvement and outpatient providers. IZABELLA SWARTZ, JENNIFER [id number]/[facility] #: [id number] JOHAN
[2019-06-23] MEDS: Divalproex DR TAB(*) 500 MG PO SCH (20:59)
[2019-06-24] MEDS: Nicotine* 2MG (FRUIT FLAVOR) GUM PO PRN ×7 (05:18→23:20)
[2019-06-24] MEDS: Divalproex DR TAB(*) 500 MG PO SCH ×2 (08:35→21:18)
[2019-06-24] MEDS: Vitamin THERAPEUTIC TAB PO SCH (08:35)
[2019-06-24] MEDS: Nicotine PATCH 21 MG/24 HR* PATCH TRANSDERM SCH (08:36)
--- NOTE | 2019-06-24 11:40 | PN ---
BSU: Group Therapy Note - Service Type Service Type: [id number] Group Psychotherapy - Cognitive Behavioral Group Note: Millie was more relevant and topical than her presentation in yesterday's group, but she continues to exhibit manic symptoms, characterized by over inclusive conversation subject matter and disorganized presentation. She is empathic and able to discuss circumstances of her admission with some insight, and is concerned about her family and employment.
[2019-06-24] MEDS: Nicotine Patch Removal NOTE PATCH OFF SCH ×3 (12:45→21:26)
--- NOTE | 2019-06-24 17:27 | PN ---
Subjective - Subjective Date of Service: 06/24/19 Service Type: [id number] Hosp care 15 min low complexity Subjective: Scott was more kind to her mother and was in a giggling mood today. She is not respecting other people's boundaries, continuing to interact even when asked by the patient to stop. She remains flirtatious. Her relationship with "Brant" remains problematic in her mother's eyes.. Her mother, Deisy, also revealed to me but not to Scott, that she will likely lose her job which will precipitate a chain of events that will be potentially devastating to Scott. Objective - General Observations Appearance: Disheveled Appears Stated Age: Yes Stature: Thin Posture: WNL Eye Contact: Average Behavior/Activity: Accelerated, Peculiar - Interaction Observations Attitude Towards Examiner: Cooperative, Evasive Stated Mood: Elevated, Euphoric Affect: Bright Speech Pattern/Tone: Clear, Appropriate, Normal Volume, Rambling Thought Process: Coherent, Goal Directed Perception: WNL Thought Content: Grandiose Hallucination Type: Denies Delusion Type: Denies - Cognitive Function Orientation: A&O x 4 Level of Consciousness: Awake, Alert, Appropriate Cognition: Impaired Cognition, Impaired Attention/Concentration Estimated Intelligence: Normal Insight: Mostly Blames Others for Problems, Difficulty Acknowledging Presence of Psyciatric Problems Judgment Within Normal Limits: No Ability to Make Reasonable Decisions: Serverely Impaired - Medication Compliance Cooperative with Inpatient Medication Regimen: Yes - Group Participation Participates in Group Activities: Partial Assessment - Assessment Merits Inpatient Hospitalization: For Immediate Safety Inpatient DSM-V Dx: F31.13 Clinical Impression: Scott is a 34-year old single white woman who is diagnosed with bipolar disorder current episode manic severe who comes to the hospital voluntarily ( although is admitted on a 9.39 status) with the complaint that her mother made her come. Her mother describes erratic potentially dangerous behavior and asks for Scott to be admitted. Plan - Plan Treatment Plan: Name: SCOTT SENIOR Birthdate: 1985 [id number] Scott will start Depakote this admission as she does not like lithium. We will monitor her behavior for bizarre interactions and peculiarities. Medications: Current Medications Acetaminophen (Tylenol Tab*) 650 mg PO Q4H PRN PRN Reason: PAIN or TEMP > 101 F Al Hydrox/Mg Hydrox/Simethicone (Maalox Plus*) 30 ml PO Q4H PRN PRN Reason: INDIGESTION Clonazepam (Klonopin Tab(*)) 1 mg PO BEDTIME PRN PRN Reason: INSOMNIA Last Admin: 06/22/19 22:33 Dose: 1 mg Clonazepam (Klonopin Tab(*)) 1 mg PO TID PRN PRN Reason: anxiety/agitation Divalproex Sodium (Depakote Dr Tab(*)) 500 mg PO BID [facility] Last Admin: 06/24/19 08:35 Dose: 500 mg Ibuprofen (Motrin Tab*) 600 mg PO Q6H PRN PRN Reason: PAIN - MODERATE Multivitamins (Theragran Tab*) 1 tab PO DAILY [facility] Last Admin: 06/24/19 08:35 Dose: 1 tab Nicotine (Nicotine Patch 21 Mg/24 Hr*) 1 patch TRANSDERM DAILY [facility] Last Admin: 06/24/19 08:36 Dose: 1 patch Nicotine Polacrilex (Nicotine Gum*) 2 mg PO Q2H PRN PRN Reason: CRAVINGS Last Admin: 06/24/19 16:14 Dose: 2 mg Pharmacy Profile Note (Nicotine Patch Removal Note*) 1 note PATCH OFF 2100 [facility] Last Admin: 06/24/19 12:45 Dose: 1 note - Discharge Plan Discharge Plan: Outpatient Follow Up
[2019-06-24] MEDS: Ibuprofen TAB* 600 MG PO PRN (23:19)
[2019-06-25] MEDS: Nicotine* 2MG (FRUIT FLAVOR) GUM PO PRN ×3 (10:47→21:42)
[2019-06-25] MEDS: Nicotine PATCH 21 MG/24 HR* PATCH TRANSDERM SCH (10:47)
[2019-06-25] MEDS: Divalproex DR TAB(*) 500 MG PO SCH ×2 (10:47→20:37)
[2019-06-25] MEDS: Vitamin THERAPEUTIC TAB PO SCH (10:47)
--- NOTE | 2019-06-25 11:22 | PN ---
Subjective - Subjective Date of Service: 06/25/19 Service Type: [id number] Hosp care 25 min moderate complexity Subjective: Patient states "this med [depakote] is making more clear and it's embarrassing. " Patient states she is starting to remember bizarre and hypersexual behaviors over the past few weeks. She states she feels bad for putting her mom through all of this and possibly putting her in danger by interacting with mentally ill peer. 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 Objective - General Observations Appearance: Well Groomed Stature: WNL Posture: WNL Eye Contact: Average Behavior/Activity: WNL - Interaction Observations Attitude Towards Examiner: Cooperative Stated Mood: Euthymic Affect: Bright Speech Pattern/Tone: Clear, Appropriate, Normal Volume Thought Process: Coherent, Racing Perception: WNL Thought Content: Self-Deprecatory, Grandiose Hallucination Type: Denies Delusion Type: Denies - Cognitive Function Orientation: A&O x 4 Level of Consciousness: Alert Cognition: Impaired Attention/Concentration Estimated Intelligence: Normal Insight: Difficulty Acknowledging Presence of Psyciatric Problems Judgment Within Normal Limits: No Ability to Make Reasonable Decisions: Moderately Impaired - Medication Compliance Cooperative with Inpatient Medication Regimen: Yes - Group Participation Participates in Group Activities: Yes Assessment - Assessment Inpatient DSM-V Dx: F31.13 Clinical Impression: Scott is a 34-year old single white woman who is diagnosed with bipolar disorder current episode manic severe who comes to the hospital voluntarily ( although is admitted on a 9.39 status) with the complaint that her mother made her come. Her mother describes erratic potentially dangerous behavior and asks for Scott to be admitted. Plan - Plan Treatment Plan: Name: SCOTT SENIOR Birthdate: 1985 [id number] Scott will start Depakote this admission as she does not like lithium. We will monitor her behavior for bizarre interactions and peculiarities. 06/25/19: patient is gaining insight into manic episode. continue current medications, obtain valproic acid trough, hgba1c and fasting lipid panel on 06/27/19 Continued Medication Management: Start Medication Medications: Current Medications Acetaminophen (Tylenol Tab*) 650 mg PO Q4H PRN PRN Reason: PAIN or TEMP > 101 F Al Hydrox/Mg Hydrox/Simethicone (Maalox Plus*) 30 ml PO Q4H PRN PRN Reason: INDIGESTION Clonazepam (Klonopin Tab(*)) 1 mg PO BEDTIME PRN PRN Reason: INSOMNIA Last Admin: 06/22/19 22:33 Dose: 1 mg Clonazepam (Klonopin Tab(*)) 1 mg PO TID PRN PRN Reason: anxiety/agitation Divalproex Sodium (Depakote Dr Tab(*)) 500 mg PO BID [facility] Last Admin: 06/25/19 10:47 Dose: 500 mg Ibuprofen (Motrin Tab*) 600 mg PO Q6H PRN PRN Reason: PAIN - MODERATE Last Admin: 06/24/19 23:19 Dose: 600 mg Multivitamins (Theragran Tab*) 1 tab PO DAILY [facility] Last Admin: 06/25/19 10:47 Dose: 1 tab Nicotine (Nicotine Patch 21 Mg/24 Hr*) 1 patch TRANSDERM DAILY [facility] Last Admin: 06/25/19 10:47 Dose: 1 patch Nicotine Polacrilex (Nicotine Gum*) 2 mg PO Q2H PRN PRN Reason: CRAVINGS Last Admin: 06/25/19 10:47 Dose: 2 mg Pharmacy Profile Note (Nicotine Patch Removal Note*) 1 note PATCH OFF 2100 [facility] Last Admin: 06/24/19 21:26 Dose: Not Given - Discharge Plan Discharge Plan: Inpatient Hospitalization
--- NOTE | 2019-06-25 13:05 | PN ---
BSU: Group Therapy Note - Service Type Service Type: [id number] Group Psychotherapy - Cognitive Behavioral Therapy (CBT): Patient presents with high volume of speech that impresses as being coherent within the context of self-report, but is tangential and off topic in group context. Concerns regarding disorganization of thought are apparent, as Millie continues to struggle with manic symptoms. Discussion focused on sleep hygiene , which was met with her response of "only needing 3 hours of sleep a night".
[2019-06-25] MEDS: Nicotine Patch Removal NOTE PATCH OFF SCH (21:25)
[2019-06-25] MEDS: Ibuprofen TAB* 600 MG PO PRN (22:51)
[2019-06-26] MEDS: clonazePAM TAB(*) 1 MG PO PRN ×2 (01:22→22:50)
[2019-06-26] MEDS: Vitamin THERAPEUTIC TAB PO SCH (09:21)
[2019-06-26] MEDS: Nicotine PATCH 21 MG/24 HR* PATCH TRANSDERM SCH (09:21)
[2019-06-26] MEDS: Divalproex DR TAB(*) 500 MG PO SCH ×2 (09:21→21:55)
[2019-06-26] MEDS: Nicotine* 2MG (FRUIT FLAVOR) GUM PO PRN ×4 (12:35→21:55)
--- NOTE | 2019-06-26 15:53 | PN ---
Subjective - Subjective Date of Service: 06/26/19 Service Type: [id number] Hosp care 15 min low complexity Subjective: Denies any particular problems needing conveyed to weekday treatment team. Reports yessenia waning. Sleeping "like I'm ." Reports "doing all the art," agrees this could reflect residual yessenia, and radically accepting it per Dr. Estrada's advice. Denies any depressive symptoms now. Objective - General Observations Appearance: Well Groomed Appears Stated Age: Yes Stature: WNL Posture: WNL Eye Contact: Average Behavior/Activity: WNL - Interaction Observations Attitude Towards Examiner: Cooperative - self-assessed as contemplative and maybe a little embarassed Stated Mood: Euthymic - "I'm fine" Affect: Full Speech Pattern/Tone: Clear, Appropriate, Normal Volume Thought Process: Coherent, Goal Directed Perception: WNL Hallucination Type: None Delusion Type: None - Cognitive Function Orientation: A&O x 4 Level of Consciousness: Awake, Alert, Appropriate Cognition: WNL Estimated Intelligence: Normal Insight: WNL Judgment Within Normal Limits: Yes - Medication Compliance Cooperative with Inpatient Medication Regimen: Yes - Group Participation Participates in Group Activities: Yes Assessment - Assessment Merits Inpatient Hospitalization: For Stabilization, Consolidate Improvements, For Discharge Planning Inpatient DSM-V Dx: F31.13 Clinical Impression: Scott is a 34-year old single white woman who is diagnosed with bipolar disorder current episode manic severe who comes to the hospital voluntarily ( although is admitted on a 9.39 status) with the complaint that her mother made her come. Her mother describes erratic potentially dangerous behavior and asks for Scott to be admitted. On 06.26.19 over the course of a 15 minute interview, Scott appear recompensated and functioning well, with report of partial remission of yessenia, sleeping "like the " and overall reporting doing well here. Plan - Plan Treatment Plan: Name: SCOTT SENIOR Birthdate: 1985 [id number] Scott will start Depakote this admission as she does not like lithium. We will monitor her behavior for bizarre interactions and peculiarities. 06/25/19: patient is gaining insight into manic episode. continue current medications, obtain valproic acid trough, hgba1c and fasting lipid panel on 06/27/19 06.26.19 - will check labs tomorrow Medications: Current Medications Acetaminophen (Tylenol Tab*) 650 mg PO Q4H PRN PRN Reason: PAIN or TEMP > 101 F Al Hydrox/Mg Hydrox/Simethicone (Maalox Plus*) 30 ml PO Q4H PRN PRN Reason: INDIGESTION Clonazepam (Klonopin Tab(*)) 1 mg PO BEDTIME PRN PRN Reason: INSOMNIA Last Admin: 06/26/19 01:22 Dose: 1 mg Clonazepam (Klonopin Tab(*)) 1 mg PO TID PRN PRN Reason: anxiety/agitation Divalproex Sodium (Depakote Dr Tab(*)) 500 mg PO BID [facility] Last Admin: 06/26/19 09:21 Dose: 500 mg Ibuprofen (Motrin Tab*) 600 mg PO Q6H PRN PRN Reason: PAIN - MODERATE Last Admin: 06/25/19 22:51 Dose: 600 mg Multivitamins (Theragran Tab*) 1 tab PO DAILY [facility] Last Admin: 06/26/19 09:21 Dose: 1 tab Nicotine (Nicotine Patch 21 Mg/24 Hr*) 1 patch TRANSDERM DAILY [facility] Last Admin: 06/26/19 09:21 Dose: 1 patch Nicotine Polacrilex (Nicotine Gum*) 2 mg PO Q2H PRN PRN Reason: CRAVINGS Last Admin: 06/26/19 12:35 Dose: 2 mg Pharmacy Profile Note (Nicotine Patch Removal Note*) 1 note PATCH OFF 2100 [facility] Last Admin: 06/25/19 21:25 Dose: 1 note - Discharge Plan Discharge Plan: Outpatient Follow Up [facility]
[2019-06-26] MEDS: Nicotine Patch Removal NOTE PATCH OFF SCH (21:59)
[2019-06-27] MEDS: Nicotine* 2MG (FRUIT FLAVOR) GUM PO PRN ×2 (06:15→16:54)
[2019-06-27 07:54] LABS: HDL Cholesterol 77.9 mg/dL
[2019-06-27] MEDS: Nicotine PATCH 21 MG/24 HR* PATCH TRANSDERM SCH (08:56)
[2019-06-27] MEDS: Divalproex DR TAB(*) 500 MG PO SCH ×2 (08:56→21:03)
[2019-06-27] MEDS: Vitamin THERAPEUTIC TAB PO SCH (08:56)
[2019-06-27] MEDS: clonazePAM TAB(*) 1 MG PO PRN (21:03)
[2019-06-27] MEDS: Ibuprofen TAB* 600 MG PO PRN (21:03)
[2019-06-27] MEDS: Nicotine Patch Removal NOTE PATCH OFF SCH (21:21)
[2019-06-28] MEDS: Nicotine* 2MG (FRUIT FLAVOR) GUM PO PRN ×5 (00:37→16:01)
[2019-06-28] MEDS: Nicotine PATCH 21 MG/24 HR* PATCH TRANSDERM SCH (08:57)
[2019-06-28] MEDS: Vitamin THERAPEUTIC TAB PO SCH (08:58)
[2019-06-28] MEDS: Divalproex DR TAB(*) 500 MG PO SCH ×2 (08:58→22:49)
--- NOTE | 2019-06-28 12:30 | PN ---
BSU: Group Therapy Note - Service Type Service Type: [id number] Group Psychotherapy - Cognitive Behavioral Group Note: Millie remains pleasant interpersonally, but continues to present as hyper- verbal in the group context. She interacts well with peers, who encourage redirection with her. Despite her ongoing symptoms, Millie has good insight regarding her decline in function secondary to yessenia, although she remains conflicted about trying to effectively treat it.
--- NOTE | 2019-06-28 14:53 | PN ---
Subjective - Subjective Date of Service: 06/28/19 Service Type: [id number] Hosp care 25 min moderate complexity Subjective: I met with Scott and her mom Deisy at the noon visiting hours. Scott remains excited and manic. She giggles many times and demonstrates some loose associations that seem to entertain her. We talk about medication adherence and how she is tolerating Depakote. Her Depakote level is 89, which is acceptable. I will not be increasing Depakote, in light of this level. I spoke with her mother who is eager for Scott to understand that she is manic and making poor choices. 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 She is getting feedback from staff and peers that her overwhelming behavior is unwelcome. Scott states she is happy to take this advice and is not chastened by it. Objective - General Observations Appearance: Disheveled Appears Stated Age: Yes Stature: Thin Posture: WNL Eye Contact: Average Behavior/Activity: Accelerated, Impulsive - Interaction Observations Attitude Towards Examiner: Cooperative, Manipulative Attitude Towards Parent/Guardian: Positive Interaction, Demanding Stated Mood: Elevated, Silly Affect: Bright Speech Pattern/Tone: Clear, Normal Volume, Rambling, Pressured Thought Process: Coherent, Loose Associations Perception: WNL Thought Content: Grandiose Hallucination Type: None - Cognitive Function Orientation: A&O x 4 Level of Consciousness: Awake, Alert, Appropriate Cognition: Impaired Cognition, Impaired Attention/Concentration Estimated Intelligence: Normal Insight: Difficulty Acknowledging Presence of Psyciatric Problems Judgment Within Normal Limits: No Ability to Make Reasonable Decisions: Serverely Impaired - Medication Compliance Cooperative with Inpatient Medication Regimen: Yes - Group Participation Participates in Group Activities: Yes Assessment - Assessment Merits Inpatient Hospitalization: For Immediate Safety Inpatient DSM-V Dx: F31.13 Clinical Impression: Scott is a 34-year old single white woman who is diagnosed with bipolar disorder current episode manic severe who comes to the hospital voluntarily ( although is admitted on a 9.39 status) with the complaint that her mother made her come. Her mother describes erratic potentially dangerous behavior and asks for Scott to be admitted. On 06.26.19 over the course of a 15 minute interview, Scott appear recompensated and functioning well, with report of partial remission of yessenia, sleeping "like the " and overall reporting doing well here. 06/28/18 Scott is giggly, hypergraphic, and demanding of her mother. She is elevated and excitable. BSU: Problem List - Patient Problems (1) Bipolar affective disorder, manic, severe Current Visit: No Status: Acute Code(s): F31.13 - BIPOLAR DISORD, CRNT EPSD MANIC W/O PSYCH FEATURES, SEVERE SNOMED Code(s): 923398475 Plan - Plan Treatment Plan: Name: SCOTT SENIOR Birthdate: 1985 [id number] Scott will start Depakote this admission as she does not like lithium. We will monitor her behavior for bizarre interactions and peculiarities. 06/25/19: patient is gaining insight into manic episode. continue current medications, obtain valproic acid trough, hgba1c and fasting lipid panel on 06/27/19 06.26.19 - will check labs tomorrow 06/28/19 Scott's Depakote level is 89 at the 500 mg BID level. Continue with medication as is. Consult with Scott about Klonopin choice. Continued Medication Management: Different Medication Medications: Current Medications Acetaminophen (Tylenol Tab*) 650 mg PO Q4H PRN PRN Reason: PAIN or TEMP > 101 F Al Hydrox/Mg Hydrox/Simethicone (Maalox Plus*) 30 ml PO Q4H PRN PRN Reason: INDIGESTION Clonazepam (Klonopin Tab(*)) 1 mg PO BEDTIME PRN PRN Reason: INSOMNIA Last Admin: 06/27/19 21:03 Dose: 1 mg Clonazepam (Klonopin Tab(*)) 1 mg PO TID PRN PRN Reason: anxiety/agitation Divalproex Sodium (Depakote Dr Tab(*)) 500 mg PO BID [facility] Last Admin: 06/28/19 08:58 Dose: 500 mg Ibuprofen (Motrin Tab*) 600 mg PO Q6H PRN PRN Reason: PAIN - MODERATE Last Admin: 06/27/19 21:03 Dose: 600 mg Multivitamins (Theragran Tab*) 1 tab PO DAILY [facility] Last Admin: 06/28/19 08:58 Dose: 1 tab Nicotine (Nicotine Patch 21 Mg/24 Hr*) 1 patch TRANSDERM DAILY [facility] Last Admin: 06/28/19 08:57 Dose: 1 patch Nicotine Polacrilex (Nicotine Gum*) 2 mg PO Q2H PRN PRN Reason: CRAVINGS Last Admin: 06/28/19 12:21 Dose: 2 mg Pharmacy Profile Note (Nicotine Patch Removal Note*) 1 note PATCH OFF 2099 [facility] Last Admin: 06/27/19 21:21 Dose: 1 note
[2019-06-29] MEDS: Nicotine* 2MG (FRUIT FLAVOR) GUM PO PRN ×3 (00:10→21:13)
[2019-06-29] MEDS: Nicotine Patch Removal NOTE PATCH OFF SCH ×2 (00:30→21:11)
[2019-06-29] MEDS: clonazePAM TAB(*) 1 MG PO PRN (00:44)
[2019-06-29] MEDS: Nicotine PATCH 21 MG/24 HR* PATCH TRANSDERM SCH (10:14)
[2019-06-29] MEDS: Divalproex DR TAB(*) 500 MG PO SCH ×2 (10:15→21:10)
[2019-06-29] MEDS: Vitamin THERAPEUTIC TAB PO SCH (10:15)
--- NOTE | 2019-06-29 13:01 | PN ---
BSU: Group Therapy Note - Service Type Service Type: [id number] Group Psychotherapy - Cognitive Behavioral Group Therapy ( CBT):Patient was attentive and participatory in CBT programming this morning, and remained in good behavioral control. Patient expressed positive insights regarding relevant treatment interventions and goals. Millie impressed as begining to exhibit a calmer presence that is more focused and based on reality.
--- NOTE | 2019-06-29 15:33 | PN ---
Subjective - Subjective Date of Service: 06/29/19 Service Type: [id number] Hosp care 35 min high complexity Subjective: There was a family meeting today at 11:30 with Millie, Millie's mother, Deisy, Millie's sister, Aliza, by phone, as well as Sandra Ludwig, and eventually Giovanny Dillon who came in later. The meeting revolved around getting Millie set up for outpatient care and discovering what would be best for Millie and what Millie would like. Millie, through behavior, made it clear that she isn't ready to make decisions regarding her care but also that she is in a state of mind that is competent to make decisions and would not require a person like Aliza, who is her health care proxy, to step in. Millie rambled, talked excessively, whispered the words, "I know, I know" much of the time. She made good eye contact, but this was often to wink or roll her eyes. She reminisced with Aliza who seemed to grow more frustrated with Millie. Giovanny came in to see if Millie would be a good candidate for him to follow up with. He stated he would accept her if the treatment team thought it appropriate. Objective - General Observations Appearance: Disheveled Appears Stated Age: Yes Stature: WNL Posture: WNL Eye Contact: Intense Behavior/Activity: Accelerated, Impulsive - Interaction Observations Attitude Towards Examiner: Cooperative Attitude Towards Parent/Guardian: Positive Interaction, Immature Stated Mood: Elevated, Expansive, Euphoric Affect: Bright Speech Pattern/Tone: Clear, Normal Volume, Rambling, Excessive Thought Process: Coherent, Loose Associations, Tangential, Flight of Ideas Perception: WNL Thought Content: Preoccupation/Ruminations, Grandiose Hallucination Type: None Delusion Type: Denies, Erotic - Cognitive Function Orientation: A&O x 4 Level of Consciousness: Awake, Alert, Appropriate Cognition: Impaired Cognition, Impaired Attention/Concentration Estimated Intelligence: Normal Insight: Difficulty Acknowledging Presence of Psyciatric Problems Judgment Within Normal Limits: No Ability to Make Reasonable Decisions: Serverely Impaired - Medication Compliance Cooperative with Inpatient Medication Regimen: Yes - Group Participation Participates in Group Activities: Partial Assessment - Assessment Merits Inpatient Hospitalization: For Immediate Safety Inpatient DSM-V Dx: F31.13 Clinical Impression: Millie is a 34-year old single white woman who is diagnosed with bipolar disorder current episode manic severe who comes to the hospital voluntarily ( although is admitted on a 9.39 status) with the complaint that her mother made her come. Her mother describes erratic potentially dangerous behavior and asks for Millie to be admitted. On 06.26.19 over the course of a 15 minute interview, Millie appear recompensated and functioning well, with report of partial remission of yessenia, sleeping "like the " and overall reporting doing well here. 06/28/18 Millie is giggly, hypergraphic, and demanding of her mother. She is elevated and excitable. BSU: Problem List - Patient Problems (1) Bipolar affective disorder, manic, severe Current Visit: No Status: Acute Code(s): F31.13 - BIPOLAR DISORD, CRNT EPSD MANIC W/O PSYCH FEATURES, SEVERE SNOMED Code(s): 567301100 Plan - Plan Treatment Plan: Name: MILLIE SENIOR Birthdate: 1985 [id number] Millie will start Depakote this admission as she does not like lithium. We will monitor her behavior for bizarre interactions and peculiarities. 06/25/19: patient is gaining insight into manic episode. continue current medications, obtain valproic acid trough, hgba1c and fasting lipid panel on 06/27/19 06.26.19 - will check labs tomorrow 06/28/19 Millie's Depakote level is 89 at the 500 mg BID level. Continue with medication as is. Consult with Millie about Klonopin choice. 06/29/18 Change Klonopin 1 mg PRN bedtime to Ativan 2 mg [facility]UREN at bedtime. Follow up on family meeting regarding discharge plan with treatment team. Continued Medication Management: Different Medication Medications: Current Medications Acetaminophen (Tylenol Tab*) 650 mg PO Q4H PRN PRN Reason: PAIN or TEMP > 101 F Al Hydrox/Mg Hydrox/Simethicone (Maalox Plus*) 30 ml PO Q4H PRN PRN Reason: INDIGESTION Divalproex Sodium (Depakote Dr Tab(*)) 500 mg PO BID [facility] Last Admin: 06/29/19 10:15 Dose: 500 mg Ibuprofen (Motrin Tab*) 600 mg PO Q6H PRN PRN Reason: PAIN - MODERATE Last Admin: 06/27/19 21:03 Dose: 600 mg Lorazepam (Ativan Tab(*)) 2 mg PO BEDTIME [facility] Multivitamins (Theragran Tab*) 1 tab PO DAILY [facility] Last Admin: 06/29/19 10:15 Dose: 1 tab Nicotine (Nicotine Patch 21 Mg/24 Hr*) 1 patch TRANSDERM DAILY [facility] Last Admin: 06/29/19 10:14 Dose: 1 patch Nicotine Polacrilex (Nicotine Gum*) 2 mg PO Q2H PRN PRN Reason: CRAVINGS Last Admin: 06/29/19 00:10 Dose: 2 mg Pharmacy Profile Note (Nicotine Patch Removal Note*) 1 note PATCH OFF 2099 [facility] Last Admin: 06/29/19 00:30 Dose: Not Given - Discharge Plan Discharge Plan: Outpatient Follow Up
[2019-06-29] MEDS: LORazepam TAB(*) 1 MG PO SCH (21:10)
[2019-06-30] MEDS: Vitamin THERAPEUTIC TAB PO SCH (09:11)
[2019-06-30] MEDS: Nicotine PATCH 21 MG/24 HR* PATCH TRANSDERM SCH (09:11)
[2019-06-30] MEDS: Divalproex DR TAB(*) 500 MG PO SCH ×2 (09:12→21:25)
--- NOTE | 2019-06-30 11:12 | PN ---
BSU: Group Therapy Note - Service Type Service Type: [id number] Group Psychotherapy - Cognitive Behavioral Group: Millie continues to improve, she was able to engage in clear and coherent conversation in a smaller group setting this morning, describing some prior experiences she has had while manic. She reports begining to have problems with yessenia at 21 years of age, and is able to see how her diminished need for sleep is the precipitant. Her mood is still expansive at times, but she is hopeful of being able to return to employment in a timely fashion.
--- NOTE | 2019-06-30 15:47 | PN ---
Subjective - Subjective Date of Service: 06/30/19 Service Type: [id number] Hosp care 15 min low complexity Subjective: Scott remains manic. She enjoys provoking people mildly and is amused at bending the rules of the unit. She is medication adherent and agrees to start Risperdal 1 mg tonight. Her mother and sister remain involved. Objective - General Observations Appearance: Disheveled Appears Stated Age: Yes Stature: WNL Posture: WNL Eye Contact: Average Behavior/Activity: Accelerated, Peculiar, Impulsive - Interaction Observations Attitude Towards Examiner: Cooperative, Manipulative Stated Mood: Elevated, Euphoric Affect: Bright Speech Pattern/Tone: Clear, Appropriate, Normal Volume, Pressured Thought Process: Coherent, Loose Associations Perception: WNL Thought Content: Grandiose Hallucination Type: None Delusion Type: None - Cognitive Function Orientation: A&O x 4 Level of Consciousness: Awake, Alert, Appropriate Cognition: Impaired Cognition, Impaired Attention/Concentration, Impaired Ability to Abstract Estimated Intelligence: Normal Insight: Difficulty Acknowledging Presence of Psyciatric Problems Judgment Within Normal Limits: No Ability to Make Reasonable Decisions: Serverely Impaired - Medication Compliance Cooperative with Inpatient Medication Regimen: Yes - Group Participation Participates in Group Activities: Partial Assessment - Assessment Merits Inpatient Hospitalization: For Immediate Safety Inpatient DSM-V Dx: F31.13 Clinical Impression: Scott is a 34-year old single white woman who is diagnosed with bipolar disorder current episode manic severe who comes to the hospital voluntarily ( although is admitted on a 9.39 status) with the complaint that her mother made her come. Her mother describes erratic potentially dangerous behavior and asks for Scott to be admitted. On 06.26.19 over the course of a 15 minute interview, Scott appear recompensated and functioning well, with report of partial remission of yessenia, sleeping "like the " and overall reporting doing well here. 06/28/18 Scott is giggly, hypergraphic, and demanding of her mother. She is elevated and excitable. BSU: Problem List - Patient Problems (1) Bipolar affective disorder, manic, severe Status: Acute Code(s): F31.13 - BIPOLAR DISORD, CRNT EPSD MANIC W/O PSYCH FEATURES, SEVERE SNOMED Code(s): 279767000 Plan - Plan Treatment Plan: Name: SCOTT SENIOR Birthdate: 1985 [id number] Scott will start Depakote this admission as she does not like lithium. We will monitor her behavior for bizarre interactions and peculiarities. 06/25/19: patient is gaining insight into manic episode. continue current medications, obtain valproic acid trough, hgba1c and fasting lipid panel on 06/27/19 06.26.19 - will check labs tomorrow 06/28/19 Scott's Depakote level is 89 at the 500 mg BID level. Continue with medication as is. Consult with Scott about Klonopin choice. 06/29/18 Change Klonopin 1 mg PRN bedtime to Ativan 2 mg LAUREN at bedtime. Follow up on family meeting regarding discharge plan with treatment team. 06/30/18 Start Risperdal 1 mg to address continued yessenia. Medications: Current Medications Acetaminophen (Tylenol Tab*) 650 mg PO Q4H PRN PRN Reason: PAIN or TEMP > 101 F Al Hydrox/Mg Hydrox/Simethicone (Maalox Plus*) 30 ml PO Q4H PRN PRN Reason: INDIGESTION Divalproex Sodium (Depakote Dr Tab(*)) 500 mg PO BID [facility] Last Admin: 06/30/19 09:12 Dose: 500 mg Ibuprofen (Motrin Tab*) 600 mg PO Q6H PRN PRN Reason: PAIN - MODERATE Last Admin: 06/27/19 21:03 Dose: 600 mg Lorazepam (Ativan Tab(*)) 2 mg PO BEDTIME [facility] Last Admin: 06/29/19 21:10 Dose: 2 mg Multivitamins (Theragran Tab*) 1 tab PO DAILY [facility] Last Admin: 06/30/19 09:11 Dose: 1 tab Nicotine (Nicotine Patch 21 Mg/24 Hr*) 1 patch TRANSDERM DAILY [facility] Last Admin: 06/30/19 09:11 Dose: 1 patch Nicotine Polacrilex (Nicotine Gum*) 2 mg PO Q2H PRN PRN Reason: CRAVINGS Last Admin: 06/29/19 21:13 Dose: 2 mg Pharmacy Profile Note (Nicotine Patch Removal Note*) 1 note PATCH OFF 2100 [facility] Last Admin: 06/29/19 21:11 Dose: 1 note Risperidone (Risperdal*) 1 mg PO BEDTIME [facility]
--- NOTE | 2019-06-30 16:13 | PN ---
BSU: Group Therapy Note - Service Type Service Type: [id number] Group Psychotherapy - Medication Education Group: Patient presented as disorganized and disruptive in discussion and needed repeated redirection to attend to presented materials. Patient receptive to redirection when monopolizing group.
[2019-06-30] MEDS: Nicotine* 2MG (FRUIT FLAVOR) GUM PO PRN ×3 (16:47→21:29)
[2019-06-30] MEDS: LORazepam TAB(*) 1 MG PO SCH (21:25)
[2019-06-30] MEDS: risperiDONE TAB* 1 MG PO SCH (21:26)
[2019-06-30] MEDS: Nicotine Patch Removal NOTE PATCH OFF SCH (21:27)
[2019-07-01] MEDS: Nicotine PATCH 21 MG/24 HR* PATCH TRANSDERM SCH (09:02)
[2019-07-01] MEDS: Vitamin THERAPEUTIC TAB PO SCH (09:03)
[2019-07-01] MEDS: Divalproex DR TAB(*) 500 MG PO SCH ×2 (09:03→21:20)
[2019-07-01] MEDS: Nicotine* 2MG (FRUIT FLAVOR) GUM PO PRN ×3 (11:53→21:23)
[2019-07-01] MEDS: LORazepam TAB(*) 1 MG PO SCH (21:21)
[2019-07-01] MEDS: risperiDONE TAB* 1 MG PO SCH (21:21)
[2019-07-01] MEDS: Nicotine Patch Removal NOTE PATCH OFF SCH (21:22)
[2019-07-02] MEDS: Nicotine* 2MG (FRUIT FLAVOR) GUM PO PRN ×3 (07:10→21:41)
[2019-07-02] MEDS: Divalproex DR TAB(*) 500 MG PO SCH ×2 (09:48→21:39)
[2019-07-02] MEDS: Nicotine PATCH 21 MG/24 HR* PATCH TRANSDERM SCH (09:48)
[2019-07-02] MEDS: Vitamin THERAPEUTIC TAB PO SCH (09:49)
--- NOTE | 2019-07-02 11:23 | PN ---
BSU: Group Therapy Note - Service Type Service Type: [id number] Group Psychotherapy - Cognitive Behavioral Group Therapy ( CBT):Patient was attentive and participatory in CBT programming this morning, and remained in good behavioral control. Patient expressed positive insights regarding relevant treatment interventions and goals.
[2019-07-02] MEDS: risperiDONE TAB* 2 MG PO SCH (21:38)
[2019-07-02] MEDS: LORazepam TAB(*) 1 MG PO SCH (21:39)
[2019-07-02] MEDS: Nicotine Patch Removal NOTE PATCH OFF SCH (22:35)
--- NOTE | 2019-07-02 23:08 | PN ---
Subjective - Subjective Date of Service: 07/02/19 Service Type: [id number] Hosp care 25 min moderate complexity Subjective: Her mother and sister continued to worry about the employment angle of things as Scott has been sent a letter regarding the termination of her employment. Scott was presented that letter and responded as if she didn't care and in fact was somewhat relieved, she said. She verbalized understanding that she would no longer have [employer] insurance. 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 She rattled off many things that she had done for employment in the past. Objective - General Observations Appearance: Disheveled Appears Stated Age: Yes Stature: WNL Posture: WNL Eye Contact: Average Behavior/Activity: Accelerated, Peculiar, Impulsive - Interaction Observations Attitude Towards Examiner: Cooperative Stated Mood: Elevated, Euphoric Affect: Bright Speech Pattern/Tone: Clear, Normal Volume, Excessive, Pressured Thought Process: Coherent Perception: WNL Thought Content: Grandiose Hallucination Type: None Delusion Type: Denies - Cognitive Function Orientation: A&O x 4 Level of Consciousness: Awake, Alert, Appropriate Cognition: Impaired Cognition, Impaired Attention/Concentration Estimated Intelligence: Normal Insight: Difficulty Acknowledging Presence of Psyciatric Problems Judgment Within Normal Limits: No Ability to Make Reasonable Decisions: Serverely Impaired - Medication Compliance Cooperative with Inpatient Medication Regimen: Yes - Group Participation Participates in Group Activities: Partial Assessment - Assessment Merits Inpatient Hospitalization: For Immediate Safety Inpatient DSM-V Dx: F31.13 Clinical Impression: Scott is a 34-year old single white woman who is diagnosed with bipolar disorder current episode manic severe who comes to the hospital voluntarily ( although is admitted on a 9.39 status) with the complaint that her mother made her come. Her mother describes erratic potentially dangerous behavior and asks for Scott to be admitted. On 06.26.19 over the course of a 15 minute interview, Scott appear recompensated and functioning well, with report of partial remission of yessenia, sleeping "like the " and overall reporting doing well here. 06/28/18 Scott is giggly, hypergraphic, and demanding of her mother. She is elevated and excitable. 07/02/18 Scott remains elevated and excitable. BSU: Problem List - Patient Problems (1) Bipolar affective disorder, manic, severe Status: Acute Code(s): F31.13 - BIPOLAR DISORD, CRNT EPSD MANIC W/O PSYCH FEATURES, SEVERE SNOMED Code(s): 104720556 Plan - Plan Treatment Plan: Name: SCOTT SENIOR Birthdate: 1985 [id number] Scott will start Depakote this admission as she does not like lithium. We will monitor her behavior for bizarre interactions and peculiarities. 06/25/19: patient is gaining insight into manic episode. continue current medications, obtain valproic acid trough, hgba1c and fasting lipid panel on 06/27/19 06.26.19 - will check labs tomorrow 06/28/19 Scott's Depakote level is 89 at the 500 mg BID level. Continue with medication as is. Consult with Scott about Klonopin choice. 06/29/18 Change Klonopin 1 mg PRN bedtime to Ativan 2 mg LAUREN at bedtime. Follow up on family meeting regarding discharge plan with treatment team. 06/30/18 Start Risperdal 1 mg to address continued yessenia. 07/02/18 Increase Risperdal to 2 mg. Advocate for sleep and reflect that her behavior is still manic. Medications: Current Medications Acetaminophen (Tylenol Tab*) 650 mg PO Q4H PRN PRN Reason: PAIN or TEMP > 101 F Al Hydrox/Mg Hydrox/Simethicone (Maalox Plus*) 30 ml PO Q4H PRN PRN Reason: INDIGESTION Divalproex Sodium (Depakote Dr Tab(*)) 500 mg PO BID [facility] Last Admin: 07/02/19 21:39 Dose: 500 mg Ibuprofen (Motrin Tab*) 600 mg PO Q6H PRN PRN Reason: PAIN - MODERATE Last Admin: 06/27/19 21:03 Dose: 600 mg Lorazepam (Ativan Tab(*)) 2 mg PO BEDTIME [facility] Last Admin: 07/02/19 21:39 Dose: 2 mg Multivitamins (Theragran Tab*) 1 tab PO DAILY [facility] Last Admin: 07/02/19 09:49 Dose: 1 tab Nicotine (Nicotine Patch 21 Mg/24 Hr*) 1 patch TRANSDERM DAILY [facility] Last Admin: 07/02/19 09:48 Dose: 1 patch Nicotine Polacrilex (Nicotine Gum*) 2 mg PO Q2H PRN PRN Reason: CRAVINGS Last Admin: 07/02/19 21:41 Dose: 2 mg Pharmacy Profile Note (Nicotine Patch Removal Note*) 1 note PATCH OFF 2099 [facility] Last Admin: 07/02/19 22:35 Dose: 1 note Risperidone (Risperdal*) 2 mg PO BEDTIME [facility] Last Admin: 07/02/19 21:38 Dose: 2 mg
[2019-07-03] MEDS: Nicotine* 2MG (FRUIT FLAVOR) GUM PO PRN ×4 (07:41→19:50)
[2019-07-03] MEDS: Nicotine PATCH 21 MG/24 HR* PATCH TRANSDERM SCH (09:14)
[2019-07-03] MEDS: Vitamin THERAPEUTIC TAB PO SCH (09:15)
[2019-07-03] MEDS: Divalproex DR TAB(*) 500 MG PO SCH ×2 (09:15→21:21)
[2019-07-03] MEDS: risperiDONE TAB* 2 MG PO SCH (21:21)
[2019-07-03] MEDS: LORazepam TAB(*) 1 MG PO SCH (21:21)
[2019-07-03] MEDS: Nicotine Patch Removal NOTE PATCH OFF SCH (21:22)
[2019-07-04] MEDS: Nicotine* 2MG (FRUIT FLAVOR) GUM PO PRN ×4 (05:31→20:52)
[2019-07-04] MEDS: Divalproex DR TAB(*) 500 MG PO SCH ×2 (08:43→20:49)
[2019-07-04] MEDS: Nicotine PATCH 21 MG/24 HR* PATCH TRANSDERM SCH (08:43)
[2019-07-04] MEDS: Vitamin THERAPEUTIC TAB PO SCH (08:43)
[2019-07-04] MEDS: risperiDONE TAB* 2 MG PO SCH (20:50)
[2019-07-04] MEDS: LORazepam TAB(*) 1 MG PO SCH (20:50)
[2019-07-04] MEDS: Nicotine Patch Removal NOTE PATCH OFF SCH (20:51)
[2019-07-05] MEDS: Nicotine* 2MG (FRUIT FLAVOR) GUM PO PRN ×4 (07:10→18:39)
[2019-07-05] MEDS: Divalproex DR TAB(*) 500 MG PO SCH ×2 (09:32→20:54)
[2019-07-05] MEDS: Nicotine PATCH 21 MG/24 HR* PATCH TRANSDERM SCH (09:33)
[2019-07-05] MEDS: Vitamin THERAPEUTIC TAB PO SCH (09:33)
--- NOTE | 2019-07-05 15:11 | PN ---
Subjective - Subjective Date of Service: 07/05/19 Service Type: [id number] Hosp care 25 min moderate complexity Subjective: Millie is found drawing and painting in group. She is eager to talk and is accepting of the blood draw I discuss with her for tomorrow morning. Today she got an email from her sister Aliza delivered by her mom, Deisy. Aliza's email made Millie cry and sob, according to Deisy. Millie minimized the implications of this letter as well as the implications of losing her job, but according to Deisy, she has finally started realizing the implications. 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 Objective - General Observations Appearance: Disheveled Appears Stated Age: Yes Stature: WNL Posture: WNL Behavior/Activity: Accelerated, Peculiar - Interaction Observations Attitude Towards Examiner: Cooperative, Manipulative Stated Mood: Elevated, Expansive Affect: Bright Speech Pattern/Tone: Clear, Appropriate, Normal Volume, Rambling Thought Process: Coherent, Goal Directed Perception: WNL Thought Content: Grandiose Hallucination Type: None Delusion Type: None - Cognitive Function Orientation: A&O x 4 Level of Consciousness: Awake, Alert, Appropriate Cognition: Impaired Cognition, Impaired Attention/Concentration Estimated Intelligence: Normal Insight: Difficulty Acknowledging Presence of Psyciatric Problems Judgment Within Normal Limits: No Ability to Make Reasonable Decisions: Serverely Impaired - Medication Compliance Cooperative with Inpatient Medication Regimen: Yes - Group Participation Participates in Group Activities: Yes Assessment - Assessment Merits Inpatient Hospitalization: For Immediate Safety Inpatient DSM-V Dx: F31.13 Clinical Impression: Millie is a 34-year old single white woman who is diagnosed with bipolar disorder current episode manic severe who comes to the hospital voluntarily ( although is admitted on a 9.39 status) with the complaint that her mother made her come. Her mother describes erratic potentially dangerous behavior and asks for Millie to be admitted. On 06.26.19 over the course of a 15 minute interview, Millie appear recompensated and functioning well, with report of partial remission of yessenia, sleeping "like the " and overall reporting doing well here. 06/28/18 Millie is giggly, hypergraphic, and demanding of her mother. She is elevated and excitable. 07/02/18 Millie remains elevated and excitable. BSU: Problem List - Patient Problems (1) Bipolar affective disorder, manic, severe Current Visit: No Status: Acute Code(s): F31.13 - BIPOLAR DISORD, CRNT EPSD MANIC W/O PSYCH FEATURES, SEVERE SNOMED Code(s): 303168960 Plan - Plan Treatment Plan: Name: MILLIE SENIOR Birthdate: 1985 [id number] Millie will start Depakote this admission as she does not like lithium. We will monitor her behavior for bizarre interactions and peculiarities. 06/25/19: patient is gaining insight into manic episode. continue current medications, obtain valproic acid trough, hgba1c and fasting lipid panel on 06/27/19 06.26.19 - will check labs tomorrow 06/28/19 Millie's Depakote level is 89 at the 500 mg BID level. Continue with medication as is. Consult with Millie about Klonopin choice. 06/29/19 Change Klonopin 1 mg PRN bedtime to Ativan 2 mg LAUREN at bedtime. Follow up on family meeting regarding discharge plan with treatment team. 06/30/19 Start Risperdal 1 mg to address continued yessenia. 07/02/19 Increase Risperdal to 2 mg. Advocate for sleep and reflect that her behavior is still manic. 07/05/19 Schedule lab draw for tomorrow to verify blood level. Contact potential therapist. Continue contact with momDeisy: [phone]. Medications: Current Medications Acetaminophen (Tylenol Tab*) 650 mg PO Q4H PRN PRN Reason: PAIN or TEMP > 101 F Al Hydrox/Mg Hydrox/Simethicone (Maalox Plus*) 30 ml PO Q4H PRN PRN Reason: INDIGESTION Divalproex Sodium (Depakote Dr Tab(*)) 500 mg PO BID [facility] Last Admin: 07/05/19 09:32 Dose: 500 mg Ibuprofen (Motrin Tab*) 600 mg PO Q6H PRN PRN Reason: PAIN - MODERATE Last Admin: 06/27/19 21:03 Dose: 600 mg Lorazepam (Ativan Tab(*)) 2 mg PO BEDTIME [facility] Last Admin: 01/19/20 20:50 Dose: 2 mg Multivitamins (Theragran Tab*) 1 tab PO DAILY [facility] Last Admin: 07/05/19 09:33 Dose: 1 tab Nicotine (Nicotine Patch 21 Mg/24 Hr*) 1 patch TRANSDERM DAILY [facility] Last Admin: 07/05/19 09:33 Dose: 1 patch Nicotine Polacrilex (Nicotine Gum*) 2 mg PO Q2H PRN PRN Reason: CRAVINGS Last Admin: 07/05/19 09:33 Dose: 2 mg Pharmacy Profile Note (Nicotine Patch Removal Note*) 1 note PATCH OFF 2099 [facility] Last Admin: 07/04/19 20:51 Dose: 1 note Risperidone (Risperdal*) 2 mg PO BEDTIME [facility] Last Admin: 07/04/19 20:50 Dose: 2 mg
[2019-07-05] MEDS: Nicotine Patch Removal NOTE PATCH OFF SCH ×2 (18:06→21:56)
[2019-07-05] MEDS: risperiDONE TAB* 2 MG PO SCH (20:54)
[2019-07-05] MEDS: LORazepam TAB(*) 1 MG PO SCH (20:54)
[2019-07-06] MEDS: Nicotine* 2MG (FRUIT FLAVOR) GUM PO PRN ×5 (05:00→17:55)
[2019-07-06] MEDS: Nicotine PATCH 21 MG/24 HR* PATCH TRANSDERM SCH (07:48)
[2019-07-06] MEDS: Vitamin THERAPEUTIC TAB PO SCH (07:48)
[2019-07-06] MEDS: Divalproex DR TAB(*) 500 MG PO SCH ×2 (07:48→20:40)
[2019-07-06] MEDS: Nicotine Patch Removal NOTE PATCH OFF SCH (19:18)
[2019-07-06] MEDS: LORazepam TAB(*) 1 MG PO SCH (20:40)
[2019-07-06] MEDS: risperiDONE TAB* 3 MG PO SCH (20:40)
[2019-07-07] MEDS: Nicotine PATCH 21 MG/24 HR* PATCH TRANSDERM SCH (07:22)
[2019-07-07] MEDS: Divalproex DR TAB(*) 500 MG PO SCH ×2 (08:09→21:28)
[2019-07-07] MEDS: Vitamin THERAPEUTIC TAB PO SCH (08:09)
[2019-07-07] MEDS: Nicotine* 2MG (FRUIT FLAVOR) GUM PO PRN ×4 (10:49→21:30)
--- NOTE | 2019-07-07 11:22 | PN ---
BSU: Group Therapy Note - Service Type Service Type: [id number] Group Psychotherapy - Cognitive Behavioral Group Note: Millie was attentive and participatory in group this morning, but had difficulty following direct and simple instructions on completing an exercise. She expressed uncertainty about future planning, but described being disinclined to return to [place], which had been discussed at some length yesterday.
--- NOTE | 2019-07-07 14:38 | PN ---
Subjective - Subjective Date of Service: 07/07/19 Service Type: [id number] Hosp care 35 min high complexity Subjective: Met with Millie in the window seat area after she stopped in her room to get a stack of her artwork and notes. Discussed the partial hospitalization program in [place] where she has agreed to enroll. She continues to have signs of yessenia, but this is improved. Millie's mom, Deisy, met with this auto service writer and we discussed the partial hospitalization program as well as Millie living with her mom for awhile. We also talked to Sandra Ludwig LCSW about making this happen and plan to revisit this in the future before discharge. Objective - General Observations Appearance: Neat Appears Stated Age: Yes Stature: WNL Posture: Rigid, Tense Eye Contact: Average Behavior/Activity: Accelerated, Peculiar, Impulsive - Interaction Observations Attitude Towards Examiner: Cooperative, Evasive, Manipulative, Dismissive Stated Mood: Euthymic Affect: Incongruent Speech Pattern/Tone: Normal Volume, Pressured Thought Process: Coherent, Flight of Ideas Perception: WNL Thought Content: Grandiose Hallucination Type: None Delusion Type: None - Cognitive Function Orientation: A&O x 4 Level of Consciousness: Awake, Alert, Appropriate Cognition: Impaired Cognition, Impaired Attention/Concentration Estimated Intelligence: Normal Insight: Difficulty Acknowledging Presence of Psyciatric Problems Judgment Within Normal Limits: No Ability to Make Reasonable Decisions: Moderately Impaired - Medication Compliance Cooperative with Inpatient Medication Regimen: Yes - Group Participation Participates in Group Activities: Partial Assessment - Assessment Merits Inpatient Hospitalization: For Immediate Safety, For Stabilization, For Discharge Planning Inpatient DSM-V Dx: F31.13 Clinical Impression: Millie is a 34-year old single white woman who is diagnosed with bipolar disorder current episode manic severe who comes to the hospital voluntarily ( although is admitted on a 9.39 status) with the complaint that her mother made her come. Her mother describes erratic potentially dangerous behavior and asks for Millie to be admitted. On 06.26.19 over the course of a 15 minute interview, Millie appear recompensated and functioning well, with report of partial remission of yessenia, sleeping "like the " and overall reporting doing well here. 06/28/18 Millie is giggly, hypergraphic, and demanding of her mother. She is elevated and excitable. 07/02/18 Millie remains elevated and excitable. BSU: Problem List - Patient Problems (1) Bipolar affective disorder, manic, severe Current Visit: No Status: Acute Code(s): F31.13 - BIPOLAR DISORD, CRNT EPSD MANIC W/O PSYCH FEATURES, SEVERE SNOMED Code(s): 953865503 Plan - Plan Treatment Plan: Name: MILLIE SENIOR Birthdate: 1985 [id number] Millie will start Depakote this admission as she does not like lithium. We will monitor her behavior for bizarre interactions and peculiarities. 06/25/19: patient is gaining insight into manic episode. continue current medications, obtain valproic acid trough, hgba1c and fasting lipid panel on 06/27/19 06.26.19 - will check labs tomorrow 06/28/19 Millie's Depakote level is 89 at the 500 mg BID level. Continue with medication as is. Consult with Millie about Klonopin choice. 06/29/19 Change Klonopin 1 mg PRN bedtime to Ativan 2 mg LAUREN at bedtime. Follow up on family meeting regarding discharge plan with treatment team. 06/30/19 Start Risperdal 1 mg to address continued yessenia. 07/02/19 Increase Risperdal to 2 mg. Advocate for sleep and reflect that her behavior is still manic. 07/05/19 Schedule lab draw for tomorrow to verify blood level. Contact potential therapist. Continue contact with momDeisy: [phone]. Medications: Current Medications Acetaminophen (Tylenol Tab*) 650 mg PO Q4H PRN PRN Reason: PAIN or TEMP > 101 F Al Hydrox/Mg Hydrox/Simethicone (Maalox Plus*) 30 ml PO Q4H PRN PRN Reason: INDIGESTION Divalproex Sodium (Depakote Dr Tab(*)) 500 mg PO BID [facility] Last Admin: 07/07/19 08:09 Dose: 500 mg Ibuprofen (Motrin Tab*) 600 mg PO Q6H PRN PRN Reason: PAIN - MODERATE Last Admin: 06/27/19 21:03 Dose: 600 mg Lorazepam (Ativan Tab(*)) 2 mg PO BEDTIME [facility] Last Admin: 07/06/19 20:40 Dose: 2 mg Multivitamins (Theragran Tab*) 1 tab PO DAILY [facility] Last Admin: 07/07/19 08:09 Dose: 1 tab Nicotine (Nicotine Patch 21 Mg/24 Hr*) 1 patch TRANSDERM DAILY [facility] Last Admin: 07/07/19 07:22 Dose: 1 patch Nicotine Polacrilex (Nicotine Gum*) 2 mg PO Q2H PRN PRN Reason: CRAVINGS Last Admin: 07/07/19 10:49 Dose: 2 mg Pharmacy Profile Note (Nicotine Patch Removal Note*) 1 note PATCH OFF 2100 [facility] Last Admin: 07/06/19 19:18 Dose: 1 note Risperidone (Risperdal*) 3 mg PO BEDTIME [facility] Last Admin: 07/06/19 20:40 Dose: 3 mg - Discharge Plan Discharge Plan: Outpatient Follow Up
--- NOTE | 2019-07-07 15:42 | PN ---
BSU: Group Therapy Note - Service Type Service Type: [id number] Group Psychotherapy - Group Participation Patient Participating in Group: Yes Level of Group Participation: Attentive, Spontaneously Participate Relatedness to Group: Well Related - Millie interacted well during the group, but was unable to contain herself when a particularly psychotic patient made off -topic commentary.
[2019-07-07] MEDS: risperiDONE TAB* 3 MG PO SCH (21:28)
[2019-07-07] MEDS: LORazepam TAB(*) 1 MG PO SCH (21:28)
[2019-07-07] MEDS: Nicotine Patch Removal NOTE PATCH OFF SCH (21:32)
[2019-07-08] MEDS: Nicotine* 2MG (FRUIT FLAVOR) GUM PO PRN ×5 (06:09→19:41)
[2019-07-08] MEDS: Vitamin THERAPEUTIC TAB PO SCH (08:07)
[2019-07-08] MEDS: Nicotine PATCH 21 MG/24 HR* PATCH TRANSDERM SCH (08:07)
[2019-07-08] MEDS: Divalproex DR TAB(*) 500 MG PO SCH ×2 (08:07→20:24)
--- NOTE | 2019-07-08 11:18 | PN ---
BSU: Group Therapy Note - Service Type Service Type: [id number] Group Psychotherapy - Cognitive Behavioral Group Note: Millie was attentive and participatory in programming this morning, relating presented information to her experience in a relevant fashion. She remained on task despite interuptions from peers, remaining organized and relevant.
[2019-07-08] MEDS: LORazepam TAB(*) 1 MG PO SCH (20:23)
[2019-07-08] MEDS: risperiDONE TAB* 3 MG PO SCH (20:25)
[2019-07-09] MEDS: Nicotine Patch Removal NOTE PATCH OFF SCH ×2 (00:06→21:14)
[2019-07-09] MEDS: Nicotine* 2MG (FRUIT FLAVOR) GUM PO PRN ×4 (03:25→18:02)
[2019-07-09] MEDS: Divalproex DR TAB(*) 500 MG PO SCH ×2 (09:43→20:02)
[2019-07-09] MEDS: Nicotine PATCH 21 MG/24 HR* PATCH TRANSDERM SCH (09:43)
[2019-07-09] MEDS: Vitamin THERAPEUTIC TAB PO SCH (09:43)
[2019-07-09] MEDS ORDERED: RISPERIDONE CONSTA 25 MG IM ONE (12:00)
--- NOTE | 2019-07-09 12:13 | PN ---
Subjective - Subjective Date of Service: 07/09/19 Service Type: [id number] Hosp care 15 min low complexity Subjective: Millie is wearing her typical clothing with a bathrobe over it. While this is strange seeming, it is also quite cold on the unit so it might be considered appropriate. Millie has been taking her medications and is agreeable to a Risperdal Consta injection of 25 mg after we discuss her previous trial of Invega Sustenna which did not go well for her. The significantly lower dose (25 mg of Risperdal vs. 234 mg of Invega) should provide a better outcome. The Risperdal oral dose should be continued for 3 weeks. Millie is agreeable to all of this. She has an irritable edge and is eager to leave. We discuss discharge Friday or Friday. Objective - General Observations Appearance: Disheveled Appears Stated Age: Yes Stature: WNL Posture: WNL Eye Contact: Average Behavior/Activity: WNL, Impulsive - Interaction Observations Attitude Towards Examiner: Cooperative, Anxious Stated Mood: Euthymic, Irritable Affect: Restricted Speech Pattern/Tone: Clear, Appropriate, Normal Volume Thought Process: Coherent, Goal Directed Perception: WNL Thought Content: WNL Hallucination Type: None Delusion Type: Denies - Cognitive Function Orientation: A&O x 4 Level of Consciousness: Awake, Alert, Appropriate Cognition: Impaired Cognition, Impaired Attention/Concentration Estimated Intelligence: Normal Insight: Difficulty Acknowledging Presence of Psyciatric Problems Judgment Within Normal Limits: No Ability to Make Reasonable Decisions: Moderately Impaired - Medication Compliance Cooperative with Inpatient Medication Regimen: Yes - Group Participation Participates in Group Activities: Yes Assessment - Assessment Merits Inpatient Hospitalization: For Immediate Safety, For Stabilization Inpatient DSM-V Dx: F31.13 Clinical Impression: Millie is a 34-year old single white woman who is diagnosed with bipolar disorder current episode manic severe who comes to the hospital voluntarily ( although is admitted on a 9.39 status) with the complaint that her mother made her come. Her mother describes erratic potentially dangerous behavior and asks for Millie to be admitted. On 06.26.19 over the course of a 15 minute interview, Millie appear recompensated and functioning well, with report of partial remission of yessenia, sleeping "like the " and overall reporting doing well here. 06/28/19 Millie is giggly, hypergraphic, and demanding of her mother. She is elevated and excitable. 07/02/19 Millie remains elevated and excitable. 07/09/2019 Millie is now mildly irritable and eager for discharge. She should be ready on Friday or Friday. BSU: Problem List - Patient Problems (1) Bipolar affective disorder, manic, severe Current Visit: No Status: Acute Code(s): F31.13 - BIPOLAR DISORD, CRNT EPSD MANIC W/O PSYCH FEATURES, SEVERE SNOMED Code(s): 307753078 Plan - Plan Treatment Plan: Name: MILLIE SENIOR Birthdate: 1985 [id number] Millie will start Depakote this admission as she does not like lithium. We will monitor her behavior for bizarre interactions and peculiarities. 06/25/19: patient is gaining insight into manic episode. continue current medications, obtain valproic acid trough, hgba1c and fasting lipid panel on 06/27/19 06.26.19 - will check labs tomorrow 06/28/19 Millie's Depakote level is 89 at the 500 mg BID level. Continue with medication as is. Consult with Millie about Klonopin choice. 06/29/19 Change Klonopin 1 mg PRN bedtime to Ativan 2 mg LAUREN at bedtime. Follow up on family meeting regarding discharge plan with treatment team. 06/30/19 Start Risperdal 1 mg to address continued yessenia. 07/02/19 Increase Risperdal to 2 mg. Advocate for sleep and reflect that her behavior is still manic. 07/05/19 Schedule lab draw for tomorrow to verify blood level. Contact potential therapist. Continue contact with mom, Deisy Senior: [phone]. 07/09/2019 Lab results are 80 for valproic acid. Millie will stay the weekend to solidify her progress. 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 Medications: Current Medications Acetaminophen (Tylenol Tab*) 650 mg PO Q4H PRN PRN Reason: PAIN or TEMP > 101 F Al Hydrox/Mg Hydrox/Simethicone (Maalox Plus*) 30 ml PO Q4H PRN PRN Reason: INDIGESTION Divalproex Sodium (Depakote Dr Tab(*)) 500 mg PO BID [facility] Last Admin: 07/09/19 09:43 Dose: 500 mg Ibuprofen (Motrin Tab*) 600 mg PO Q6H PRN PRN Reason: PAIN - MODERATE Last Admin: 06/27/19 21:03 Dose: 600 mg Lorazepam (Ativan Tab(*)) 2 mg PO BEDTIME [facility] Last Admin: 07/08/19 20:23 Dose: 2 mg Multivitamins (Theragran Tab*) 1 tab PO DAILY [facility] Last Admin: 07/09/19 09:43 Dose: 1 tab Nicotine (Nicotine Patch 21 Mg/24 Hr*) 1 patch TRANSDERM DAILY [facility] Last Admin: 07/09/19 09:43 Dose: 1 patch Nicotine Polacrilex (Nicotine Gum*) 2 mg PO Q2H PRN PRN Reason: CRAVINGS Last Admin: 07/09/19 03:25 Dose: 2 mg Pharmacy Profile Note (Nicotine Patch Removal Note*) 1 note PATCH OFF 2100 [facility] Last Admin: 07/09/19 00:06 Dose: Not Given Risperidone (Risperdal*) 3 mg PO BEDTIME [facility] - Discharge Plan Discharge Plan: Outpatient Follow Up
[2019-07-09] MEDS: risperiDONE TAB* 3 MG PO SCH (20:02)
[2019-07-09] MEDS: LORazepam TAB(*) 1 MG PO SCH (20:02)
[2019-07-10] MEDS: Nicotine* 2MG (FRUIT FLAVOR) GUM PO PRN ×4 (04:47→18:22)
[2019-07-10] MEDS: Nicotine PATCH 21 MG/24 HR* PATCH TRANSDERM SCH (07:00)
[2019-07-10] MEDS: Divalproex DR TAB(*) 500 MG PO SCH ×2 (09:07→20:21)
[2019-07-10] MEDS: Vitamin THERAPEUTIC TAB PO SCH (09:07)
[2019-07-10] MEDS: Nicotine Patch Removal NOTE PATCH OFF SCH ×2 (18:23→20:23)
[2019-07-10] MEDS: LORazepam TAB(*) 1 MG PO SCH (20:21)
[2019-07-10] MEDS: risperiDONE TAB* 3 MG PO SCH (20:21)
[2019-07-11] MEDS: Nicotine* 2MG (FRUIT FLAVOR) GUM PO PRN ×4 (06:20→20:33)
[2019-07-11] MEDS: Divalproex DR TAB(*) 500 MG PO SCH ×2 (08:55→20:34)
[2019-07-11] MEDS: Nicotine PATCH 21 MG/24 HR* PATCH TRANSDERM SCH (08:55)
[2019-07-11] MEDS: Vitamin THERAPEUTIC TAB PO SCH (08:55)
[2019-07-11] MEDS: LORazepam TAB(*) 1 MG PO SCH (20:33)
[2019-07-11] MEDS: risperiDONE TAB* 3 MG PO SCH (20:34)
[2019-07-11] MEDS: Nicotine Patch Removal NOTE PATCH OFF SCH (21:16)
[2019-07-12] MEDS: Nicotine* 2MG (FRUIT FLAVOR) GUM PO PRN ×5 (03:43→17:36)
[2019-07-12] MEDS: Nicotine PATCH 21 MG/24 HR* PATCH TRANSDERM SCH (08:03)
[2019-07-12] MEDS: Divalproex DR TAB(*) 500 MG PO SCH ×2 (08:04→20:23)
[2019-07-12] MEDS: Vitamin THERAPEUTIC TAB PO SCH (08:04)
--- NOTE | 2019-07-12 13:56 | PN ---
Subjective - Subjective Date of Service: 07/12/19 Service Type: [id number] Hosp care 25 min moderate complexity Subjective: I spoke with Millie regarding her proposed discharge for tomorrow. We discussed her purposeful agitating of another patient. She stated he had been saying provocative things to her and that she was responding to him. We also discussed her desire to remain manic, as she feels more like herself that way. She acknowledges with good insight that there are extreme consequences to her untreated yessenia. I also spoke with Millie's mom, Deisy, who was hoping that Giovanny Dillon would come and have a meeting with her at her apartment in [place] before they head to [facility]. I advised against Millie having a male therapist and contacted Sandra Ludwig to seek a new therapist. Objective - General Observations Appearance: Neat Appears Stated Age: Yes Stature: Thin Posture: WNL Eye Contact: Average Behavior/Activity: Accelerated - Interaction Observations Attitude Towards Examiner: Cooperative Stated Mood: Elevated, Silly Affect: Full, Bright Speech Pattern/Tone: Clear, Appropriate, Normal Volume Thought Process: Coherent, Goal Directed Perception: WNL Thought Content: WNL Hallucination Type: None Delusion Type: None - Cognitive Function Orientation: A&O x 4 Level of Consciousness: Awake, Alert, Appropriate Cognition: Impaired Attention/Concentration Estimated Intelligence: Normal Insight: WNL Judgment Within Normal Limits: No Ability to Make Reasonable Decisions: Mildly Impaired - Medication Compliance Cooperative with Inpatient Medication Regimen: Yes - Group Participation Participates in Group Activities: Yes Assessment - Assessment Merits Inpatient Hospitalization: For Immediate Safety, For Stabilization, For Discharge Planning Inpatient DSM-V Dx: F31.13 Clinical Impression: Millie is a 34-year old single white woman who is diagnosed with bipolar disorder current episode manic severe who comes to the hospital voluntarily ( although is admitted on a 9.39 status) with the complaint that her mother made her come. Her mother describes erratic potentially dangerous behavior and asks for Millie to be admitted. On 06.26.19 over the course of a 15 minute interview, Millie appear recompensated and functioning well, with report of partial remission of yessenia, sleeping "like the " and overall reporting doing well here. 06/28/19 Millie is giggly, hypergraphic, and demanding of her mother. She is elevated and excitable. 07/02/19 Millie remains elevated and excitable. 07/09/2019 Millie is now mildly irritable and eager for discharge. She should be ready on Friday or Friday. BSU: Problem List - Patient Problems (1) Bipolar affective disorder, manic, severe Current Visit: No Status: Acute Code(s): F31.13 - BIPOLAR DISORD, CRNT EPSD MANIC W/O PSYCH FEATURES, SEVERE SNOMED Code(s): 666642363 Plan - Plan Treatment Plan: Name: MILLIE SENIOR Birthdate: 1985 [id number] Millie will start Depakote this admission as she does not like lithium. We will monitor her behavior for bizarre interactions and peculiarities. 06/25/19: patient is gaining insight into manic episode. continue current medications, obtain valproic acid trough, hgba1c and fasting lipid panel on 06/27/19 06.26.19 - will check labs tomorrow 06/28/19 Millie's Depakote level is 89 at the 500 mg BID level. Continue with medication as is. Consult with Millie about Klonopin choice. 06/29/19 Change Klonopin 1 mg PRN bedtime to Ativan 2 mg LAUREN at bedtime. Follow up on family meeting regarding discharge plan with treatment team. 06/30/19 Start Risperdal 1 mg to address continued yessenia. 07/02/19 Increase Risperdal to 2 mg. Advocate for sleep and reflect that her behavior is still manic. 07/05/19 Schedule lab draw for tomorrow to verify blood level. Contact potential therapist. Continue contact with mom, Deisy Senior: [phone]. 07/09/2019 Lab results are 80 for valproic acid. Millie will stay the weekend to solidify her progress. 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 07/12/19 Millie is preparing for discharge tomorrow. The partial hospitalization program in [place] has given Millie an intake date of 07/14/19 at 9am. Her mother will be picking her up around 2 pm for a family meeting and then discharge. Medications: Current Medications Acetaminophen (Tylenol Tab*) 650 mg PO Q4H PRN PRN Reason: PAIN or TEMP > 101 F Al Hydrox/Mg Hydrox/Simethicone (Maalox Plus*) 30 ml PO Q4H PRN PRN Reason: INDIGESTION Divalproex Sodium (Depakote Dr Tab(*)) 500 mg PO BID [facility] Last Admin: 07/12/19 08:04 Dose: 500 mg Ibuprofen (Motrin Tab*) 600 mg PO Q6H PRN PRN Reason: PAIN - MODERATE Last Admin: 06/27/19 21:03 Dose: 600 mg Multivitamins (Theragran Tab*) 1 tab PO DAILY [facility] Last Admin: 07/12/19 08:04 Dose: 1 tab Nicotine (Nicotine Patch 21 Mg/24 Hr*) 1 patch TRANSDERM DAILY [facility] Last Admin: 07/12/19 08:03 Dose: 1 patch Nicotine Polacrilex (Nicotine Gum*) 2 mg PO Q2H PRN PRN Reason: CRAVINGS Last Admin: 07/12/19 11:57 Dose: 2 mg Pharmacy Profile Note (Nicotine Patch Removal Note*) 1 note PATCH OFF 2100 [facility] Last Admin: 07/11/19 21:16 Dose: Not Given Risperidone (Risperdal*) 3 mg PO BEDTIME [facility] Last Admin: 07/11/19 20:34 Dose: 3 mg - Discharge Plan Discharge Plan: Outpatient Follow Up
[2019-07-12] MEDS: LORazepam TAB(*) 1 MG PO SCH (20:24)
[2019-07-12] MEDS: risperiDONE TAB* 3 MG PO SCH (20:24)
[2019-07-12] MEDS: Nicotine Patch Removal NOTE PATCH OFF SCH (20:38)
[2019-07-13] MEDS: Nicotine* 2MG (FRUIT FLAVOR) GUM PO PRN ×3 (08:00→13:37)
[2019-07-13] MEDS: Nicotine PATCH 21 MG/24 HR* PATCH TRANSDERM SCH (08:00)
[2019-07-13] MEDS: Divalproex DR TAB(*) 500 MG PO SCH (08:00)
[2019-07-13] MEDS: Vitamin THERAPEUTIC TAB PO SCH (08:00)
[2019-07-13 08:52] VITALS: BP 107/64
[2019-07-13] MEDS ORDERED: Divalproex ER TAB(*) 500 MG PO SCH (21:00)
--- NOTE | 2019-07-13 21:59 | DS ---
DISCHARGE SUMMARY: DATE OF ADMISSION: 06/22/19 DATE OF DISCHARGE: 07/13/19 PROVIDER: Izabella Swartz NP, in Psychiatry. SUPERVISING PHYSICIAN: Dr. Bruno Lau.* (DICTATED BY IZABELLA SWARTZ NP ) DIAGNOSIS: Bipolar 1 disorder, recurrent episode, manic without psychotic features, severe. CONDITION AT THE TIME OF DISCHARGE: Improved, psychiatrically cleared, stable, participated in many groups, was social with peers. Her mother was agreeable to discharge as is Millie. She has improved here psychiatrically. She tolerated the addition of Risperdal and Depakote well. She is scheduled to return to [facility] in [place], [place]. MENTAL STATUS EXAM: At the time of discharge, Millie is excitable, cooperative, and makes good eye contact. She is alert and oriented x4. Her grooming is adequate. Her speech pace is pressured. Her thought processes are logical. She is not psychotic or delusional. She denies AH, VH, SI, and HI. Insight and judgment are fair. She is willing to follow up and she is urged to see a therapist. DISCHARGE INSTRUCTIONS TO THE PATIENT: A. Medications: 1. Vitamin B12 500 mcg daily. 2. Depakote ER 1000 mg at bedtime. 3. Lorazepam 2 mg at bedtime. 4. Nicotine gum 2 mg p.r.n. cravings. 5. Nicotine patch 21 mg 1 patch transdermally daily. 6. Risperdal 3 mg at bedtime. 7. Risperdal Consta 25 mg started 07/09/2019. B. Diet is regular. C. Activities as tolerated. Millie is a smoker, but she has declined a referral to the [place] [facility] at this time. If she desires to access this free service in the future, she can contact the quitline toll free at [phone]. There are no studies pending at the time of discharge. D. Followup care: She has an appointment at [facility] at [address] [place] [address], and admission appointment is on 07/14/19 at 9 a.m. She must bring a photo ID and insurance information. E. Disposition: She is being discharged with her mother to her mother's home for the next 2 weeks. F. Substance abuse followup is not indicated. HOSPITAL COURSE: Part A: Chief complaint: "I am here because of my mother." The patient is a 34-year-old, single white female with a history of bipolar 1 disorder, who arrives, brought in by her mother and is here on on a 9.39 status after behaving erratically following a recent discharge from this hospital unit. Millie was discharged from this unit on 06/17/19. She had displayed manic symptoms, but took lithium. We got to a total of 900 mg of extended-release lithium and she was discharged on that medication in addition to 1 mg of Klonopin as needed. Millie has returned to the hospital. Her lithium level is less than 0.1 indicating that she did not take her lithium when she was at home. At home, she connected with a former patient named, Brant, who was intimidating to her mother and also was behaving erratically and inappropriately. Apparently , Brant took a cab to Millies apartment, but did not have the money to pay. Millie tried to write a check to the taxi and the taxi would not accept a check. Millie insisted that her mother pay and her mother would not pay it. The show horse driver called the police. The police came and there was some discussion of whether or not Brant should be arrested. Brant was not arrested and did come into [facility] apartment along with her mother. Millie behaved in a provocative, at times sexual way, and Millie's mother , Deisy, indicated to Millie that this was inappropriate in that both Millie and Brant were behaving inappropriately. This was an unpopular announcement from Deisy to Millie. Millie, on 06/22/19, returned to the behavioral services unit with her mother. They both came in between the doors. Millie's mother was in tears and Millie was nearly silent, but she looked defiant and angry. She agreed to walk with me to the emergency department where she was placed in a room and evaluated and admitted on a 9.39 status. Millie blames her situation in the hospital on her mother being unreasonable. During a meeting today with Millie and her mother, Millie in the blink of an eye shifted from being quite pleasant to being rude, aggressive, dismissive, and a bit nasty to her mother. Her mother indicates this is only 10% of how unpleasant Millie can be when she is manic and not getting what she wants. At this time, she is distractible. She is indiscreet in her home and around her houseguest and her mother. She is grandiose, believing that she will go to [place] to live with her sister, although this has not been discussed. Flight of ideas is present. Her activity has increased. She is hypergraphic. There is a sleep deficit. She had not slept for a few days, but did sleep last night, and she is very talkative, not entertaining conversation as much as she is explaining her thought process. At this point, her behavior could be considered high risk. The former patient she is choosing to associate with is noted to be a person who behaves erratically. Part B. Psychiatric treatment was rendered. Millie was admitted to the adult behavioral unit and placed on 15-minute checks for safety. She did eventually advance to 30-minute checks and staff pass privileges. Millie took a long time ( her stay was 22 days) to re-compensate on the unit. She did go to some groups. She generally interacted with peers well, although at the end of her stay she became antagonistic toward one person who was antagonizing her in return. We wanted to continue with lithium for Millie, but she declined taking that because she said it made her head and her feet feel inflamed. Instead, we chose to use Depakote. When she was here on the unit, we used [address] lopez and at her discharge changed that formulation to Depakote ER with 1000 mg at bedtime. Millie's Depakote level was 80, this is where she left. Millie was not sleeping well. We added lorazepam 2 mg at bedtime to help her sleep. In addition to combat her manic symptoms and her tendency to have grandiose thoughts that were just shy of being delusional, we gave her Risperdal 3 mg at bedtime. It should be noted that she has taken Risperdal and Invega and Abilify and all of these have not suited her particularly well. It may be in her interest to change to a newer medication such as Vraylar or Latuda given that she has failed prior trials. Millie is taking Risperdal; therefore, it should be noted that her hemoglobin A1c is 5.6, triglycerides are 45, cholesterol is 182, LDL cholesterol is 95, HDL cholesterol is 77.9. On 06/27/19, her valproic acid level was 89. On 07/06, her valproic acid level was 80. Also note that on 06/22/19, she had no drugs of abuse detected in her urine screen. I did meet with her mother, Deisy, several times and spoke with her on the phone as well. Her sister, Aliza, was also involved by phone in a family meeting that Millie was somewhat overly manic to participate in. Deisy remains concerned that Millie is not stable, although she is accepting taking her home. During the family meeting at discharge, Millie displayed behavior that was significantly different from what she has been showing on the unit. She has on the unit been showing some irritability, but generally the ability to maintain her composure as well as continuing to behave in a fashion that is typical of general society. During a family meeting at the end of her stay, she was overly energetic, she could not stay on topic, she was at one point tearful, and appeared to be not telling the truth about what was making her cry. She was unkind to her mother, continuing to blame her for the hospitalization. She was giving away her belongings to the unit and was unable to recognize that her behavior was unusual. Nevertheless, her mother was willing to take her and she had been showing many signs of stability and she is going to a partial hospitalization program tomorrow at 9 a.m. where her behavior may calm down as she is not as excited to be leaving. It should be noted that she was here for 22 days and was growing very weary of being here. This could easily explain being irritable and overly excited about leaving. The daily plan for Millie began with starting Depakote and monitoring for continued bizarre interactions and peculiarities. On 06/25/19, we believed that Millie was gaining insight into her manic episode. We continued her medications and planned on obtaining valproic acid, hemoglobin A1c, and fasting lipids on 06/27/19. On 06/28/19, Millie's Depakote level was 89 and it was at 500 mg b.i.d. On 06/29/19, we decided to change Klonopin 1 mg p.r.n. at bedtime to Ativan 2 mg scheduled at bedtime. This caused Millie to state that she slept like the and it was implemented in order to reduce her yessenia. On 06/30/19, we started Risperdal 1 mg to reduce the continued yessenia. On 07/02/19, we increased Risperdal to 2 mg, advocated for sleep, and reflected that her behavior remained manic. On 07/05/19, we scheduled another lab draw to verify blood level as her behavior had not improved. We began contacting potential therapist outpatient and consulting with mom, Deisy Hudson, her phone number is [phone]. On 07/09/19, lab results were 80 for valproic acid. She has previously (at an admission at a different hospital) been started on Invega Sustenna. She experienced side effects such as shaking and feeling "zombie like." Nevertheless , we started her on the significantly lower dose of Risperdal Consta 25 mg, which she tolerated well. Millie was staying that weekend to solidify her progress and she was preparing for a [employer] Program in [place]. On 07/12/19, Millie was preparing for discharge on 07/13/19. The [facility] in [place] has given Millie an initial intake date for 07/14/19, at 9 a.m. and her mother was picking her up around 2 p.m. for a family meeting and then discharge. Millie displayed symptoms that were much improved. She was safe on all checks and was in behavioral control on staff pass. She remained silly and hypergraphic , but my understanding was this was baseline behavior to her. She was indeed less active; she was less flirtatious. Her sleep had improved. She was less grandiose and she seems to be understand the implications of some of her behaviors. At discharge, however, she began to display continued symptoms of yessenia. This was interpreted to be excitement that she was leaving after such a long stay. 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 When presented with this information, she was very silly and dismissive and indicated that she has worked in so many other jobs that it does not even matter. She also indicated at discharge that she wanted to become a middle school director in [place] to be with her brother, Ashutosh. She vilified her mother slightly and her mother is apparently familiar with this behavior. She is future oriented. She is eager to leave and go to the program over 2 weeks, as she said, and eventually return to [place]. IZABELLA SWARTZ, JENNIFER [id number]/[facility] #: [id number] JOHAN
== END 2019-07-13 14:25 | disposition home or self-care (01) | DRG 753 ==
LOC: ED 10:44 → BSU 18:22
PROVIDERS: ADMIT Psychiatry & Neurology Psychiatry; ATTEND Psychiatry & Neurology Psychiatry
PROC: GZHZZZZ Group Psychotherapy (ICD-10-PCS; principal; 2019-06-23)
DX: F31.13 Bipolar disorder, current episode manic without psychotic features, severe (principal); F17.200 Nicotine dependence, unspecified, uncomplicated; Z88.8 Allergy status to other drugs, medicaments and biological substances
CPT/HCPCS: 36415; 80061; 80164; 80178; 80307; 81003; 81015; 83036; 87086; 90853; 99222; 99231; 99232; 99233; 99238; 99284; A9270-GY; G0480

== ENCOUNTER 2021-02-01 11:26 | Inpatient (IN) ==
[2021-02-01 13:38] LABS: Urine Appearance Cloudy; Urine Bilirubin Negative (Negative); Urine Blood 3+ (Negative); Urine Color Yellow; Urine Glucose Negative (Negative); Urine Ketones 1+ (Negative); Urine Nitrite Negative (Negative); Urine Protein Negative (Negative); Urine Specific Gravity 1.024 (1.002-1.030); Urine Urobilinogen Negative (Negative)
[2021-02-01 13:45] LABS: Urine Bacteria Absent (Absent); Urine Red Blood Cell 3+(>10/hpf) (Absent); Urine Squamous Epithelial Cell Present (Absent); Urine White Blood Cell Trace(0-5/hpf) (Absent)
[2021-02-01 13:55] LABS: Urine Benzodiazepine Screen None Detected (None Detect); Urine Cannabinoids Screen None Detected (None Detect); Urine Opiates Screen None Detected (None Detect)
[2021-02-01 14:50] LABS: ABS Eosinophils 0.2 10^3/ul (0-0.6); ABS Lymphocytes 2.2 10^3/ul (1.0-4.8); ABS Monocytes 0.8 10^3/ul (0-0.8); ABS Neutrophils 6.6 10^3/ul (1.5-7.7); Eosinophil % 2.3 %; Hematocrit 36 % (35-47); Hemoglobin 11.6 g/dL (12.0-16.0); Lymphocyte % 22.5 %; Mean Corpuscular HGB Conc 33 g/dL (31-36); Mean Corpuscular Hemoglobin 26 pg (27-31); Mean Corpuscular Volume 81 fL (80-97); Mean Platelet Volume 8.6 fL (7.4-10.4); Platelet Count 241 10^3/uL (150-450); Red Cell Distribution Width 14 % (10-15); White Blood Count 9.8 10^3/uL (3.5-10.8)
[2021-02-01 15:11] LABS: HCG Pregnancy < 0.60 mIU/mL
[2021-02-01 15:17] LABS: ALT 15 U/L (7-52); AST 18 U/L (13-39); Albumin 4.4 g/dL (3.2-5.2); Albumin/Globulin Ratio 1.7 (1-3); Alkaline Phosphatase 67 U/L (35-149); Anion Gap 5 mmol/L (2-11); Blood Urea Nitrogen 15 mg/dL (6-24); CO2 Carbon Dioxide 26 mmol/L (22-32); Chloride 107 mmol/L (101-111); EGFR African American 94.7 (>60); EGFR Non-African American 78.2 (>60); Globulin 2.6 g/dL (2-4); Glucose 134 mg/dL (70-100); Potassium 3.8 mmol/L (3.5-5.0); Sodium 138 mmol/L (135-145)
[2021-02-01 15:38] LABS: Acetaminophen < 15 mcg/mL; Alcohol, S < 13 mg/dL (<13); Salicylate < 2.50 mg/dL (<30)
[2021-02-01] MEDS ORDERED: Al Hydrox/Mg Hydrox/Simet LIQ 30 ML UDC PO PRN (20:20)
[2021-02-01] MEDS ORDERED: Nicotine Lozenge mini 2 MG LOZNG.MINI MT PRN (21:00)
[2021-02-01] MEDS: Nicotine GUM 2MG FRUIT FLAVOR PO PRN (21:55)
[2021-02-02] MEDS: Nicotine PATCH 21 MG/24 HR PATCH TRANSDERM SCH ×2 (10:25→10:46)
[2021-02-02] MEDS: Vitamin THERAPEUTIC TAB PO SCH (10:26)
[2021-02-02] MEDS: Nicotine GUM 2MG FRUIT FLAVOR PO PRN (10:46)
[2021-02-02] MEDS: Nicotine GUM 4MG FRUIT FLAVOR PO PRN ×2 (14:59→17:57)
[2021-02-03] MEDS: Nicotine GUM 4MG FRUIT FLAVOR PO PRN ×3 (05:51→21:10)
[2021-02-03] MEDS: Nicotine PATCH 21 MG/24 HR PATCH TRANSDERM SCH (08:22)
[2021-02-03] MEDS: Vitamin THERAPEUTIC TAB PO SCH (08:23)
[2021-02-03] MEDS: Nicotine Lozenge mini 4 MG LOZNG.MINI MT PRN (18:55)
[2021-02-04] MEDS: Nicotine GUM 4MG FRUIT FLAVOR PO PRN ×2 (04:51→13:02)
[2021-02-04] MEDS: Nicotine PATCH 21 MG/24 HR PATCH TRANSDERM SCH (07:20)
[2021-02-04] MEDS: Vitamin THERAPEUTIC TAB PO SCH (07:20)
[2021-02-04 08:39] LABS: HDL Cholesterol 70.2 mg/dL
[2021-02-04] MEDS: Nicotine Lozenge mini 4 MG LOZNG.MINI MT PRN (16:20)
[2021-02-05] MEDS: Nicotine GUM 4MG FRUIT FLAVOR PO PRN ×5 (00:22→21:57)
[2021-02-05] MEDS: Nicotine Lozenge mini 4 MG LOZNG.MINI MT PRN ×3 (02:23→13:43)
[2021-02-05] MEDS: Nicotine PATCH 21 MG/24 HR PATCH TRANSDERM SCH (07:14)
[2021-02-05] MEDS: Vitamin THERAPEUTIC TAB PO SCH (08:15)
[2021-02-05] MEDS ORDERED: Paliperidone SUSTENNA 234 MG/1.5 ML IM ONE (12:41)
[2021-02-05 17:38] LABS: Hepatitis B Surface Antigen Nonreactive (Nonreactive)
[2021-02-05 17:43] LABS: Hepatitis A Ab IgM Negative (Negative)
[2021-02-05 17:44] LABS: Hepatitis B Core IgM Nonreactive (Nonreactive)
[2021-02-05 17:56] LABS: Hepatitis C Antibody Negative (Negative)
[2021-02-05 23:08] LABS: HIV 4th Generation Nonreactive (Nonreactive)
[2021-02-06] MEDS: Nicotine GUM 4MG FRUIT FLAVOR PO PRN ×4 (05:27→20:50)
[2021-02-06] MEDS: Vitamin THERAPEUTIC TAB PO SCH (08:24)
[2021-02-06] MEDS: Nicotine PATCH 21 MG/24 HR PATCH TRANSDERM SCH (08:24)
[2021-02-07] MEDS: Nicotine GUM 4MG FRUIT FLAVOR PO PRN ×5 (06:18→21:42)
[2021-02-07] MEDS: Nicotine PATCH 21 MG/24 HR PATCH TRANSDERM SCH (07:46)
[2021-02-07] MEDS: Nicotine Lozenge mini 4 MG LOZNG.MINI MT PRN ×3 (07:46→17:38)
[2021-02-07] MEDS: Vitamin THERAPEUTIC TAB PO SCH (07:46)
[2021-02-07 14:20] LABS: Chlamydia trachomatis NAA Negative (Negative); Neisseria gonorrhoeae (GC) NAA Negative (Negative)
[2021-02-08] MEDS: Nicotine GUM 4MG FRUIT FLAVOR PO PRN ×3 (06:23→18:51)
[2021-02-08] MEDS: Vitamin THERAPEUTIC TAB PO SCH (09:23)
[2021-02-08] MEDS: Nicotine PATCH 21 MG/24 HR PATCH TRANSDERM SCH (09:23)
[2021-02-08] MEDS ORDERED: Paliperidone SUSTENNA 156 MG/1 ML IM ONE (12:00)
[2021-02-08] MEDS: Nicotine Lozenge mini 4 MG LOZNG.MINI MT PRN ×2 (13:42→20:53)
[2021-02-09] MEDS: Nicotine GUM 4MG FRUIT FLAVOR PO PRN ×4 (05:42→19:54)
[2021-02-09] MEDS: Nicotine Lozenge mini 4 MG LOZNG.MINI MT PRN ×2 (07:27→18:38)
[2021-02-09] MEDS: Vitamin THERAPEUTIC TAB PO SCH (08:33)
[2021-02-09] MEDS: Nicotine PATCH 21 MG/24 HR PATCH TRANSDERM SCH (08:34)
[2021-02-10] MEDS: Nicotine GUM 4MG FRUIT FLAVOR PO PRN ×4 (05:17→21:21)
[2021-02-10] MEDS: Nicotine Lozenge mini 4 MG LOZNG.MINI MT PRN ×4 (06:19→16:05)
[2021-02-10] MEDS: Nicotine PATCH 21 MG/24 HR PATCH TRANSDERM SCH (06:59)
[2021-02-10] MEDS: Vitamin THERAPEUTIC TAB PO SCH (08:33)
[2021-02-11] MEDS: Nicotine GUM 4MG FRUIT FLAVOR PO PRN ×3 (05:30→13:33)
[2021-02-11] MEDS: Nicotine Lozenge mini 4 MG LOZNG.MINI MT PRN ×3 (06:30→15:47)
[2021-02-11] MEDS: Nicotine PATCH 21 MG/24 HR PATCH TRANSDERM SCH (07:36)
[2021-02-11] MEDS: Vitamin THERAPEUTIC TAB PO SCH (07:37)
[2021-02-12] MEDS: Nicotine Lozenge mini 4 MG LOZNG.MINI MT PRN ×5 (04:50→18:04)
[2021-02-12] MEDS: Nicotine GUM 4MG FRUIT FLAVOR PO PRN ×3 (06:30→16:27)
[2021-02-12] MEDS: Nicotine PATCH 21 MG/24 HR PATCH TRANSDERM SCH (08:36)
[2021-02-12] MEDS: Vitamin THERAPEUTIC TAB PO SCH (08:37)
[2021-02-13] MEDS: Nicotine GUM 4MG FRUIT FLAVOR PO PRN ×5 (01:27→18:27)
[2021-02-13] MEDS: Nicotine Lozenge mini 4 MG LOZNG.MINI MT PRN ×4 (02:54→16:08)
[2021-02-13] MEDS: Nicotine PATCH 21 MG/24 HR PATCH TRANSDERM SCH (08:13)
[2021-02-13] MEDS: Vitamin THERAPEUTIC TAB PO SCH (08:14)
[2021-02-14] MEDS: Nicotine GUM 4MG FRUIT FLAVOR PO PRN ×5 (03:53→19:50)
[2021-02-14] MEDS: Nicotine Lozenge mini 4 MG LOZNG.MINI MT PRN ×4 (05:28→16:22)
[2021-02-14] MEDS: Vitamin THERAPEUTIC TAB PO SCH (08:22)
[2021-02-14] MEDS: Nicotine PATCH 21 MG/24 HR PATCH TRANSDERM SCH (08:22)
[2021-02-15] MEDS: Nicotine GUM 4MG FRUIT FLAVOR PO PRN ×6 (00:56→18:37)
[2021-02-15] MEDS: Nicotine Lozenge mini 4 MG LOZNG.MINI MT PRN ×4 (05:00→16:49)
[2021-02-15] MEDS: Nicotine PATCH 21 MG/24 HR PATCH TRANSDERM SCH (08:19)
[2021-02-15] MEDS: Vitamin THERAPEUTIC TAB PO SCH (08:19)
[2021-02-16] MEDS: Nicotine GUM 4MG FRUIT FLAVOR PO PRN ×5 (00:14→19:05)
[2021-02-16] MEDS: Nicotine Lozenge mini 4 MG LOZNG.MINI MT PRN ×4 (05:28→20:52)
[2021-02-16] MEDS: Vitamin THERAPEUTIC TAB PO SCH (08:38)
[2021-02-16] MEDS: Nicotine PATCH 21 MG/24 HR PATCH TRANSDERM SCH (08:38)
[2021-02-17] MEDS: Nicotine GUM 4MG FRUIT FLAVOR PO PRN ×4 (04:31→16:54)
[2021-02-17] MEDS: Nicotine Lozenge mini 4 MG LOZNG.MINI MT PRN ×4 (05:47→18:50)
[2021-02-17] MEDS: Vitamin THERAPEUTIC TAB PO SCH (07:42)
[2021-02-17] MEDS: Nicotine PATCH 21 MG/24 HR PATCH TRANSDERM SCH (07:42)
[2021-02-18] MEDS: Nicotine GUM 4MG FRUIT FLAVOR PO PRN ×4 (05:56→18:54)
[2021-02-18] MEDS: Vitamin THERAPEUTIC TAB PO SCH (07:22)
[2021-02-18] MEDS: Nicotine PATCH 21 MG/24 HR PATCH TRANSDERM SCH (07:25)
[2021-02-18] MEDS: Nicotine Lozenge mini 4 MG LOZNG.MINI MT PRN ×3 (08:31→19:36)
[2021-02-19] MEDS: Nicotine GUM 4MG FRUIT FLAVOR PO PRN ×6 (05:02→22:07)
[2021-02-19] MEDS: Nicotine Lozenge mini 4 MG LOZNG.MINI MT PRN ×4 (06:16→20:59)
[2021-02-19] MEDS: Vitamin THERAPEUTIC TAB PO SCH (08:10)
[2021-02-19] MEDS: Nicotine PATCH 21 MG/24 HR PATCH TRANSDERM SCH (08:10)
[2021-02-20] MEDS: Nicotine GUM 4MG FRUIT FLAVOR PO PRN ×3 (02:13→10:52)
[2021-02-20] MEDS: Nicotine Lozenge mini 4 MG LOZNG.MINI MT PRN (04:10)
[2021-02-20 07:39] VITALS: BP 119/67
[2021-02-20] MEDS: Vitamin THERAPEUTIC TAB PO SCH (08:05)
[2021-02-20] MEDS: Nicotine PATCH 21 MG/24 HR PATCH TRANSDERM SCH (08:06)
== END 2021-02-20 13:30 | disposition home or self-care (01) | DRG 753 ==
LOC: ED 11:26 → BSU 18:45
PROVIDERS: ADMIT Psychiatry & Neurology Psychiatry; ATTEND Psychiatry & Neurology Psychiatry